=== PATIENT | male | born 1965 | race American Indian/Alaskan Native ===

== ENCOUNTER 2016-03-14 10:29 | Emergency (ER) | payer MEDICAID | END 2016-03-14 11:20 | disposition left against medical advice (07) | LOC: ED 10:29 | DX: M79.606 Pain in leg, unspecified (principal); M25.559 Pain in unspecified hip; Z53.21 Procedure and treatment not carried out due to patient leaving prior to being seen by health care provider ==

== ENCOUNTER 2016-12-27 10:11 | Outpatient (CLI) | payer MEDICAID ==
--- NOTE | 2016-12-27 11:54 | XRay Report ---
LEFT KNEE RADIOGRAPHS INDICATION: Knee pain. COMPARISON: None similar. FINDINGS: AP, lateral and oblique left knee radiographs demonstrate intact articulation. No suprapatellar effusion. Degenerative tibial spine prominence though noted. Possible osteopenia. Old healed left fibular neck deformity may also be noted. CONCLUSION: No acute left knee radiographic abnormality with mild degenerative changes, as above. Thank you for the opportunity to participate in this patient's care.
== END 2016-12-27 10:12 | disposition home or self-care (01) ==
LOC: XRAY 10:11
PROVIDERS: ATTEND Physical Medicine & Rehabilitation
DX: M17.12 Unilateral primary osteoarthritis, left knee (principal); S82.402D Unspecified fracture of shaft of left fibula, subsequent encounter for closed fracture with routine healing; X58.XXXD Exposure to other specified factors, subsequent encounter

== ENCOUNTER 2017-01-22 10:29 | Emergency (ER) | payer MEDICAID ==
[2017-01-22 11:28] VITALS: BP 160/106
--- NOTE | 2017-01-22 12:58 | XRay Report ---
CHEST WITH RIGHT RIB DETAIL 3 VIEWS: 01/22/17 10:29:00 CLINICAL: Fall and right chest wall pain. FINDINGS: No rib fracture or rib lesion.The lungs are normally expanded and clear. No pneumothorax. Normal heart and pulmonary vasculature the lungs are clear. Normal soft tissues. IMPRESSION: Negative with no rib fracture identified.
--- NOTE | 2017-01-22 13:00 | XRay Report ---
XRAY RIGHT HIP TWO VIEWS: 01/22/17 10:29:00 CLINICAL: Right hip pain. FINDINGS: The right femoral head is increased in density and there is cortical offset at the lateral aspect which is consistent with a subchondral fracture. No other fracture identified. Narrowing of the superolateral joint space with a small osteophyte. The pelvic bones are intact. Mild arthritis of the left hip. IMPRESSION: Changes in the femoral head are consistent with avascular necrosis and nontraumatic subchondral fracture of uncertain age. No other fracture. Mild arthritis.
[2017-01-22 13:53] LABS: Hematocrit 47.8 % (35.5-45.6); Hemoglobin 16.2 gm/dl (11.8-15.2); Mean Corpuscular HGB Conc 34 % (32-34); Mean Corpuscular Hemoglobin 30 pg (28-32); Mean Corpuscular Volume 88 fl (84-94); Platelet Count 262 K/mm3 (140-440); Red Blood Count 5.45 M/mm3 (3.65-5.03); Red Cell Distribution Width 13.9 % (13.2-15.2); White Blood Count 7.4 K/mm3 (4.5-11.0)
--- NOTE | 2017-01-22 13:57 | Emergency Department Report ---
ED Fall HPI - General Chief Complaint: Fall Stated Complaint: BROKEN RIBS Source: patient Mode of arrival: Ambulatory - History of Present Illness Initial Comments: 51-year-old -[place] male comes in status post fall several days ago. He's coming in complaint of right hip pain and reports that it comes and goes. He also complains of left side rib pain concern for fracture. Patient reports that pain is worse with taking a deep breath. Patient also reports that he has been followed by an orthopedic which she cannot name for his chronic hip pain patient reports that he is supposed to have a right hip replacement but orthopedics wanted him to follow-up with his primary care provider which she does not know the name prior to replacement. Patient also reports that the orthopedics wanted to him to have a scan of his right hip. Patient did admit that he was given a Percocet from his mother to deal with his pain that he is having in his right hip and left rib side. Patient reports he has a adverse reaction to codeine which she reports is itching. He is currently taking no chronic medications. Patient reports he has no other medical issues besides asthma. Based on review of chart patient has had many visits with blood pressure elevated. MD Complaint: fall -: Gradual Fall From: standing When Fall Occurred: # days BUSINESS SUPPORT (2) Fall Witnessed: no Place Fall Occurred: home Loss of Consciousness: none Prolonged Down Time?: no Location - Extremities: Right: Thigh (hip ) Severity: severe Severity scale (0 -10): 10 Quality: sharp Associated Symptoms: denies - Related Data Home Medications Medication Instructions Recorded Confirmed Last Taken Haloperidol [Haldol] 1 mg PO QHS 01/05/16 01/05/16 Unknown Previous Rx's Medication Instructions Recorded Last Taken Type Cyclobenzaprine [Flexeril] 10 mg PO BID #20 tablet 01/05/16 Unknown Rx Naproxen [Naprosyn TAB] 500 mg PO BID #14 tablet 01/05/16 Unknown Rx Naproxen 500 mg PO BID PRN #15 tablet 01/22/17 Unknown Rx Allergies Allergy/AdvReac Type Severity Reaction Status Date / Time codeine AdvReac Itching Verified 02/23/14 12:30 ED Review of Systems ROS: Stated complaint: BROKEN RIBS Other details as noted in HPI Comment: All other systems reviewed and negative Constitutional: denies: chills, fever Eyes: denies: eye pain, eye discharge, vision change ENT: denies: ear pain, throat pain Respiratory: denies: cough, shortness of breath, wheezing Musculoskeletal: arthralgia, myalgia Skin: denies: rash, lesions Neurological: denies: headache, weakness, paresthesias Psychiatric: denies: anxiety, depression Hematological/Lymphatic: denies: easy bleeding, easy bruising ED Past Medical Hx - Past Medical History Hx Arthritis: Yes (bilateral hips) Hx Psychiatric Treatment: No Hx Asthma: Yes - Surgical History Additional Surgical History: ankle - Social History Smoking Status: Current Every Day Smoker Substance Use Type: Alcohol - Medications Home Medications: Home Medications Medication Instructions Recorded Confirmed Last Taken Type Cyclobenzaprine [Flexeril] 10 mg PO BID #20 tablet 01/05/16 Unknown Rx Haloperidol [Haldol] 1 mg PO QHS 01/05/16 01/05/16 Unknown History Naproxen [Naprosyn TAB] 500 mg PO BID #14 tablet 01/05/16 Unknown Rx Naproxen 500 mg PO BID PRN #15 tablet 01/22/17 Unknown Rx ED Physical Exam - General Limitations: No Limitations General appearance: alert, in no apparent distress - Head Head exam: Present: atraumatic, normocephalic - Eye Eye exam: Present: normal appearance - Respiratory Respiratory exam: Present: normal lung sounds bilaterally. Absent: respiratory distress - Cardiovascular Cardiovascular Exam: Present: tachycardia - GI/Abdominal GI/Abdominal exam: Present: soft, normal bowel sounds - Expanded Lower Extremity Exam Right Hip exam: Present: tenderness, external rotation (with pain), internal rotation (with pain). Absent: full ROM, swelling, abrasion, erythema Upper Leg exam: Present: normal inspection Knee exam: Present: normal inspection Lower Leg exam: Present: normal inspection Ankle exam: Present: normal inspection Neuro vascular tendon exam: Present: no vascular compromise Gait: Positive: observed and limited by pain, antalgic ED Course Vital Signs 01/22/17 11:24 Temperature 98.1 F Pulse Rate 104 H Respiratory 18 Rate Blood Pressure 160/106 O2 Sat by Pulse 96 Oximetry ED Medical Decision Making - Lab Data Result diagrams: 01/22/17 13:44 01/22/17 13:44 - Medical Decision Making Patient's been evaluated by his provider in fast track. Review of x-rays and labs. Discussed case with Dr. Connell. She recommends a CT of the right hip and IV fluids. And for the patient to follow up with his primary care provider and primary orthopedist. We're looking for that QT of the fracture of the right hip. Patient will be given naproxen 500 mg by mouth for pain management. Patient has an allergy to codeine. Critical care attestation.: If time is entered above; I have spent that time in minutes in the direct care of this critically ill patient, excluding procedure time. ED Disposition Clinical Impression: Avascular necrosis of bone of right hip Fall Qualifiers: Encounter type: initial encounter Qualified Code(s): W19.XXXA - Unspecified fall, initial encounter Rib contusion Qualifiers: Encounter type: sequela Laterality: left Qualified Code(s): S20.212S - Contusion of left front wall of thorax, sequela Disposition: - TO HOME OR SELFCARE Is pt being admited?: No Does the pt Need Aspirin: No Condition: Stable Instructions: Arthralgia (ED) Additional Instructions: It's very importantly to follow-up with orthopedic provider. Please take pain medication as prescribed. Prescriptions: Naproxen 500 mg PO BID PRN #15 tablet PRN Reason: Pain Referrals: PRIMARY CAREMD [Primary Care Provider] - 3-5 Days CONNIE KENNEDY MD [Staff Physician] - 3-5 Days Forms: Work/School Release Form(ED)
[2017-01-22 14:09] LABS: Alanine Aminotransferase 41 units/L (7-56); Albumin 4.3 g/dL (3.9-5); Albumin/Globulin Ratio 0.9 %; Alkaline Phosphatase 165 units/L (35-129); Anion Gap 18 mmol/L; BUN/Creatinine Ratio 9; Blood Urea Nitrogen 8 mg/dL (9-20); Calcium 10.1 mg/dL (8.4-10.2); Carbon Dioxide 25 mmol/L (22-30); Chloride 92.1 mmol/L (98-107); Glucose 102 mg/dL (75-100); Potassium 4.6 mmol/L (3.6-5.0); Sodium 130 mmol/L (137-145); Total Protein 9.2 g/dL (6.3-8.2)
[2017-01-22] MEDS ORDERED: NACL 0.9% 1000 ML 1,000 ML IV ONE (14:30)
--- NOTE | 2017-01-22 15:37 | Cat Scan Report ---
FINAL REPORT EXAM: CT LOWER EXTREMITY RT WO CON HISTORY: abnormal x ray RIGHT hip TECHNIQUE: CT the hip and pelvis with multiplanar reconstructions PRIORS: None. FINDINGS: Demonstrated is sclerosis of the right femoral head. At the superior aspect of the femoral head there is cortical disruption consistent with subchondral fracture which is likely a traumatic. There is joint effusion present. Underlying septic arthritis cannot be excluded. There is bone defect with density present likely reflecting a remote decompression procedure. Left hip is unremarkable. Bony pelvis demonstrates no evidence for fracture. Pubic symphysis and SI joints are unremarkable. IMPRESSION: A avascular necrosis of the right femoral head evidence for prior decompression procedure Subchondral fractures of the femoral head age indeterminate. Likely reflecting sequela of 79 and. Right hip joint effusion. Septic arthritis cannot be excluded.
[2017-01-22] MEDS ORDERED: MOTRIN PO ONE (16:33)
== END 2017-01-22 17:21 | disposition home or self-care (01) ==
LOC: ED 10:29
DX: S20.212S Contusion of left front wall of thorax, sequela (principal); M87.059 Idiopathic aseptic necrosis of unspecified femur; M19.90 Unspecified osteoarthritis, unspecified site; J45.909 Unspecified asthma, uncomplicated; F17.200 Nicotine dependence, unspecified, uncomplicated; Z88.6 Allergy status to analgesic agent; W19.XXXA Unspecified fall, initial encounter; Y93.89 Activity, other specified; Y99.9 Unspecified external cause status; Y92.89 Other specified places as the place of occurrence of the external cause
CPT/HCPCS: 36415; 71101; 73502; 73700; 80053; 85025; 96360; 99284; J7030

== ENCOUNTER 2017-03-10 07:30 | Inpatient (IN) | payer MEDICAID ==
[2017-03-08 13:46] LABS: Basophils % (Auto) 0.8 % (0.0-1.8); Eosinophils # (Auto) 0.1 K/mm3 (0.0-0.4); Eosinophils % (Auto) 2.3 % (0.0-4.3); Hematocrit 41.6 % (35.5-45.6); Hemoglobin 14.1 gm/dl (11.8-15.2); Lymphocytes # (Auto) 1.7 K/mm3 (1.2-5.4); Lymphocytes % (Auto) 31.9 % (13.4-35.0); Mean Corpuscular HGB Conc 34 % (32-34); Mean Corpuscular Hemoglobin 30 pg (28-32); Mean Corpuscular Volume 89 fl (84-94); Monocytes # (Auto) 0.5 K/mm3 (0.0-0.8); Monocytes % (Auto) 9.9 % (0.0-7.3); Platelet Count 209 K/mm3 (140-440); Red Blood Count 4.69 M/mm3 (3.65-5.03); Red Cell Distribution Width 13.9 % (13.2-15.2)
--- NOTE | 2017-03-08 13:53 | Anesthesia Consultation ---
Anesthesia Consult and Med Hx Date of service: 03/08/17 - Airway Anesthetic Teeth Evaluation: Good, Chipped (top right molar) ROM Head & Neck: Adequate Mental/Hyoid Distance: Adequate Mallampati Class: Class II Intubation Access Assessment: Probably Good - Pulmonary Exam CTA: Yes - Cardiac Exam Cardiac Exam: RRR - Pre-Operative Health Status ASA Pre-Surgery Classification: ASA2 Proposed Anesthetic Plan: Epidural, Spinal - Pulmonary Hx Smoking: Yes (1PPD) Hx Asthma: Yes Hx Sleep Apnea: No (HIGH RISK) - Cardiovascular System Hx Hypertension: No - Central Nervous System Hx Seizures: No CVA: No Hx Psychiatric Problems: Yes (bipolar, depression) - Endocrine Hx End Stage Renal Disease: No Hx Liver Disease: No - Other Systems Hx Alcohol Use: Yes (H/O ETOH ABUSE, DAILY 2-3 BEER DAILY) Hx Substance Use: Yes (H/O COCAINE ABUSE NONE IN >13 YRS) Hx Cancer: No
[2017-03-08 13:56] LABS: INR 0.87 (0.87-1.13)
[2017-03-08 13:57] LABS: Partial Thromboplastin Time 21.3 Sec. (24.2-36.6)
[2017-03-08 14:06] LABS: Alanine Aminotransferase 30 units/L (7-56); Albumin 4.2 g/dL (3.9-5); BUN/Creatinine Ratio 10; Blood Urea Nitrogen 8 mg/dL (9-20); Calcium 9.5 mg/dL (8.4-10.2); Hemolysis Index 27
[~2017-03-10 07:30] MED LIST: ANCEF/STERILE WATER 2 GM/20 ML IV NR; NACL 0.9% 1000 ML 1,000 ML IV SCH; PEPCID PO NR; VERSED IV NR
--- NOTE | 2017-03-10 13:22 | Anesthesia Day of Surgery ---
Anesthesia Day of Surgery - Day of Surgery Patient Examined: Yes Patient H&P Reviewed: Yes Patient is NPO: Yes
[2017-03-10] MEDS ORDERED: ZOFRAN IV PRN (13:24)
[2017-03-10] MEDS ORDERED: MORPHINE ONE ×2 (14:11→15:19)
[2017-03-10] MEDS ORDERED: XYLOCAINE MPF 2% ONE (14:18)
[2017-03-10] MEDS ORDERED: DIPRIVAN 10 MG/ML IV ONE (14:18)
[2017-03-10] MEDS ORDERED: ZEMURON IV ONE (14:18)
[2017-03-10] MEDS ORDERED: MARCAINE 0.5% 30 ML INFILTRATI ONE (14:28)
[2017-03-10] MEDS ORDERED: TORADOL ONE (14:28)
[2017-03-10] MEDS ORDERED: NACL 0.9% 200 ML ONE (14:29)
[2017-03-10] MEDS ORDERED: MARCAINE 0.5% INFILTRATI ONE (14:52)
[2017-03-10] MEDS ORDERED: NACL 0.9% IV ONE (14:52)
[2017-03-10] MEDS ORDERED: MORPHINE IM ONE (14:52)
[2017-03-10] MEDS ORDERED: TORADOL IV ONE (14:52)
[2017-03-10] MEDS ORDERED: DILAUDID ONE ×2 (15:07→16:16)
[2017-03-10] MEDS ORDERED: NEOSTIGMINE ONE (15:35)
[2017-03-10] MEDS ORDERED: ROBINUL ONE (15:35)
[2017-03-10] MEDS ORDERED: ZOFRAN ONE (15:52)
[2017-03-10] MEDS ORDERED: ROXICODONE PO PRN (16:15)
--- NOTE | 2017-03-10 16:27 | Procedure Note ---
Date of procedure: 03/10/17 Pre-op diagnosis: avascular necrosis right femoral head with collapse Post-op diagnosis: same Procedure: Right total hip replacement Procedure The patient was brought to the OR and placed in the OR table in the supine position following induction intubation by anesthesia the patient's was turned into the left lateral decubitus position care was taken to protect the bony areas and a axillary roll was used and the left axilla. Right hip and thigh were then prepped and draped in the usual sterile manner. A timeout procedure was done to identify the patient and the correct operative site. Using the lateral approach incision was taken down through skin and subcutaneous the fascia roger was incised A Charnley retractor was placed deep within the wound care was taken to enter the anterior hip capsule by the vastus lateralis and the gluteus medius tendons in the knee was flexed and internally rotated which brought us upon the anterior portion of the hip joint using a small broach and osteotomy was performed on the femoral neck approximately 2 mm to centimeters proximal to the lesser trochanter. Using Thomas retractors the the acetabular structures were evaluated the patient was noted to have some moderate changes within the acetabulum reaming was begun starting with a 44 mm diameter and advancing up to a 52 mm cup was taken to the observed bleeding bone within the acetabulum nicely 53 mm cup was inserted care was taken to maintain the proper version that being 45 abduction and 20 of anteversion and a small screw was used to stabilize this acetabular component next attention was turned to the proximal femur using a cookie cutter and the proximal femoral canal was entered this was then reamed and broached to a #5 stem And the hip joint was then reduced using a 30 neutral neck and a 32 mm head hip was reduced taken through a range of motion and was found to be stable Trial component was removed and the hip joint was then copiously irrigated the final components were inserted that being a #5 femoral stem with a 32 mm head again the hip joint was reduced and was taken through a range of motion and found stable. He was closed in a standard routine fashion. Dressings were applied the patient tolerated the procedure and there were no complications he was taken to postanesthesia recovery stable Anesthesia: GETA Surgeon: CONNIE KENNEDY Ladderman: MANNIE CR Estimated blood loss: other (300 mL) Pathology: list Specimen disposition: to lab (right femoral head and neck) Condition: stable Disposition: PACU
[2017-03-10] MEDS: DILAUDID IV PRN ×2 (16:38→16:52)
[2017-03-10] MEDS ORDERED: NORMODYNE IV ONE (17:04)
[2017-03-10] MEDS ORDERED: VERSED IV ONE ×2 (17:14→18:00)
--- NOTE | 2017-03-10 17:51 | XRay Report ---
FINAL REPORT EXAM: XR HIP 2-3V RT HISTORY: postop evaluation TECHNIQUE: AP and frog-leg radiographs of the right hip. PRIORS: 09/21/2016. FINDINGS: There has been placement of a right hip prosthesis without evidence of hardware complication. Soft tissue swelling and subcutaneous emphysema over the lateral aspect of the right hip is likely postsurgical. Skin amber are seen lateral to the right hip. No acute fracture. Normal alignment. IMPRESSION: Right hip prosthesis placement without hardware complication.
[2017-03-10 19:53] LABS: Basophils % (Auto) 0.3 % (0.0-1.8); Eosinophils % (Auto) 0.7 % (0.0-4.3); Hematocrit 40.5 % (35.5-45.6); Hemoglobin 13.1 gm/dl (11.8-15.2); Lymphocytes # (Auto) 1.6 K/mm3 (1.2-5.4); Lymphocytes % (Auto) 21.5 % (13.4-35.0); Mean Corpuscular HGB Conc 32 % (32-34); Mean Corpuscular Hemoglobin 29 pg (28-32); Mean Corpuscular Volume 91 fl (84-94); Monocytes # (Auto) 0.6 K/mm3 (0.0-0.8); Monocytes % (Auto) 7.8 % (0.0-7.3); Platelet Count 255 K/mm3 (140-440); Red Blood Count 4.44 M/mm3 (3.65-5.03); Red Cell Distribution Width 14.6 % (13.2-15.2)
[2017-03-10] MEDS: PERCOCET 5/325 PO PRN (21:40)
[2017-03-10] MEDS: HABITROL TD SCH (22:12)
[2017-03-10] MEDS: BENADRYL IV PRN (22:13)
[2017-03-10] MEDS: LACTATED RINGERS 1,000 ML IV SCH (22:14)
[2017-03-11] MEDS: PERCOCET 5/325 PO PRN ×2 (03:43→09:58)
[2017-03-11] MEDS: NORCO 5/325 PO PRN ×3 (07:59→17:59)
[2017-03-11] MEDS: HABITROL TD SCH (09:58)
[2017-03-11] MEDS: LOVENOX SUB-Q SCH (10:04)
[2017-03-11] MEDS: BENADRYL IV PRN ×3 (10:05→23:41)
[2017-03-11] MEDS ORDERED: DILAUDID IV PRN ×2 (16:07→16:34)
[2017-03-11] MEDS: LACTATED RINGERS 1,000 ML IV SCH (18:00)
[2017-03-11] MEDS: DILAUDID IV PRN (20:13)
[2017-03-11] MEDS ORDERED: PERCOCET 5/325 PO PRN (22:50)
--- NOTE | 2017-03-11 22:52 | Consultation ---
History of Present Illness - Reason for Consult Consult date: 03/11/17 medical management Requesting physician: CONNIE CAMARENA - History of Present Illness History of present illness: 51-year-old -[place] male admitted for right hip fracture. Patient had open reduction internal fixation of right hip fracture. Postop patient doing well. Hospitalist team was asked to manage medical problems.Patient has history of bipolar disorder and depression. Past History Past Medical History: other (bipolar disorder and depression) Past Surgical History: Other (right hip surgery ORIF) Social history: lives with family, smoking, full code Medications and Allergies Allergies Allergy/AdvReac Type Severity Reaction Status Date / Time codeine Allergy Itching Verified 03/10/17 13:33 Home Medications Medication Instructions Recorded Confirmed Last Taken Type Cyclobenzaprine [Flexeril] 10 mg PO BID #20 tablet 01/05/16 03/07/17 Unknown Rx Haloperidol [Haldol] 1 mg PO QHS 01/05/16 03/10/17 03/08/17 21:00 History Naproxen [Naprosyn TAB] 500 mg PO BID #14 tablet 01/05/16 03/10/17 03/08/17 17: 00 Rx Gabapentin [Neurontin] 1 tab PO DAILY 03/07/17 03/10/17 03/08/17 09:00 History Hydroxyzine HCl [hydrOXYzine] 50 mg PO TID 03/07/17 03/10/17 03/08/17 21:00 History Blue Carbonate 600 mg PO BID 03/07/17 03/10/17 03/08/17 17:00 History Meloxicam 7.5 mg PO DAILY 03/07/17 03/07/17 Unknown History Oxycodone HCl/Acetaminophen 1 each PO Q6HR PRN 03/07/17 03/07/17 Unknown History [Percocet 7.5/325 mg] Sertraline [Zoloft] 50 mg PO QDAY 03/07/17 03/10/17 03/08/17 09:00 History traZODone [Desyrel] 200 mg PO QHS 03/07/17 03/10/17 03/08/17 21:00 History Active Meds: Active Medications Acetaminophen/Hydrocodone Bitart ([place] 5/325) 1 each PO Q4H PRN PRN Reason: Pain, Moderate (4-6) Last Admin: 03/11/17 17:59 Dose: 1 each Diphenhydramine HCl (Benadryl) 25 mg IV Q6H PRN PRN Reason: Itching Last Admin: 03/11/17 17:58 Dose: 25 mg Enoxaparin Sodium (Lovenox) 40 mg SUB-Q QDAY [facility] Last Admin: 03/11/17 10:04 Dose: 40 mg Hydromorphone HCl (Dilaudid) 2 mg IV Q3H PRN PRN Reason: Pain , Severe (7-10) Last Admin: 03/11/17 20:13 Dose: 2 mg Sodium Chloride (Nacl 0.9% 1000 Ml) 1,000 mls @ 75 mls/hr IV DIRECT [facility]OHNSON Last Admin: 03/10/17 10:00 Dose: 75 mls/hr Lactated Ringer's (Lactated Ringers) 1,000 mls @ 42 mls/hr IV DIRECT [facility] Last Admin: 03/11/17 18:00 Dose: 42 mls/hr Nicotine (Habitrol) 21 mg TD QDAY [facility] Last Admin: 03/11/17 09:58 Dose: 21 mg Ondansetron HCl (Zofran) 4 mg IV ONCE PRN PRN Reason: Nausea And Vomiting Oxycodone HCl (Roxicodone) 5 mg PO Q6H PRN PRN Reason: Pain , Severe (7-10) Last Admin: 03/11/17 11:58 Dose: 5 mg Oxycodone/Acetaminophen (Percocet 5/325) 1 tab PO Q4H PRN PRN Reason: Pain, Moderate (4-6) Last Admin: 03/11/17 09:58 Dose: 1 tab Review of Systems All systems: negative Exam - Constitutional Vitals: Temp Pulse Resp BP Pulse Ox 99.9 F H 114 H 20 165/108 99 03/11/17 19:22 03/11/17 19:22 03/11/17 20:13 03/11/17 19:22 03/11/17 19:22 General appearance: Present: no acute distress, well-nourished - EENT Eyes: Present: PERRL ENT: hearing intact, clear oral mucosa - Neck Neck: Present: supple, normal ROM - Respiratory Respiratory effort: normal Respiratory: bilateral: CTA - Cardiovascular Rhythm: regular (80) Heart Sounds: Present: S1 & S2. Absent: rub, click - Extremities Extremities: no ischemia, pulses intact, pulses symmetrical, No edema, abnormal (decreased range of motion in that right hip) Peripheral Pulses: within normal limits - Abdominal General gastrointestinal: Present: soft, non-tender, non-distended, normal bowel sounds Male genitourinary: Present: normal - Rectal Rectal Exam: deferred - Integumentary Integumentary: Present: clear, warm, dry - Musculoskeletal Musculoskeletal: gait normal, strength equal bilaterally - Psychiatric Psychiatric: appropriate mood/affect, intact judgment & insight - Neurologic Neurologic: CNII-XII intact, moves all extremities Results - Labs CBC & Chem 7: 03/10/17 19:40 03/08/17 13:04 Assessment and Plan - Patient Problems (1) Closed right hip fracture Current Visit: Yes Status: Acute Qualifiers: Encounter type: initial encounter Qualified Code(s): S72.001A - Fracture of unspecified part of neck of right femur, initial encounter for closed fracture Plan to address problem: patient had ORIF by Dr. Camarena. Postop patient doing well (2) Bipolar disorder Current Visit: Yes Status: Chronic Qualifiers: Active/Remission status: in full remission Plan to address problem: continue lithium carbonate check lithium levels. (3) Depression Current Visit: Yes Status: Chronic Qualifiers: Depression Type: unspecified Qualified Code(s): F32.9 - Major depressive disorder, single episode, unspecified Plan to address problem: continue Zoloft (4) EtOH dependence Current Visit: Yes Status: Chronic Qualifiers: Substance use status: uncomplicated Qualified Code(s): F10.20 - Alcohol dependence, uncomplicated Plan to address problem: CIWA protocol (5) Pain management Current Visit: Yes Status: Acute Plan to address problem: morphine 4 mg every 4 hours ordered (6) DVT prophylaxis Current Visit: No Status: Acute Plan to address problem: SCDs and Lovenox
[2017-03-11] MEDS: ESKALITH PO SCH (23:38)
[2017-03-11] MEDS: FLEXERIL PO SCH (23:39)
[2017-03-11] MEDS: DESYREL PO SCH (23:58)
[2017-03-11] MEDS: HALDOL PO SCH (23:59)
[2017-03-12] MEDS: DILAUDID IV PRN ×6 (02:29→23:16)
[2017-03-12] MEDS: BENADRYL IV PRN ×2 (06:31→19:55)
[2017-03-12 06:46] LABS: Basophils % (Auto) 0.2 % (0.0-1.8); Eosinophils % (Auto) 0.5 % (0.0-4.3); Hematocrit 29.6 % (35.5-45.6); Hemoglobin 10.2 gm/dl (11.8-15.2); Lymphocytes # (Auto) 1.4 K/mm3 (1.2-5.4); Lymphocytes % (Auto) 19.8 % (13.4-35.0); Mean Corpuscular HGB Conc 34 % (32-34); Mean Corpuscular Hemoglobin 31 pg (28-32); Mean Corpuscular Volume 90 fl (84-94); Monocytes % (Auto) 14.9 % (0.0-7.3); Platelet Count 222 K/mm3 (140-440); Red Blood Count 3.31 M/mm3 (3.65-5.03); Red Cell Distribution Width 14.1 % (13.2-15.2)
[2017-03-12 06:57] LABS: BUN/Creatinine Ratio 8; Blood Urea Nitrogen 7 mg/dL (9-20); Calcium 8.8 mg/dL (8.4-10.2); Hemolysis Index 10
[2017-03-12] MEDS: ATARAX PO SCH ×3 (10:00→23:04)
[2017-03-12] MEDS: FLEXERIL PO SCH ×2 (10:01→23:14)
[2017-03-12] MEDS: NEURONTIN PO SCH (10:02)
[2017-03-12] MEDS: ZOLOFT PO SCH (10:02)
[2017-03-12] MEDS: LOVENOX SUB-Q SCH (10:03)
[2017-03-12] MEDS: HABITROL TD SCH (10:04)
[2017-03-12] MEDS: ESKALITH PO SCH ×2 (10:05→23:14)
--- NOTE | 2017-03-12 11:06 | Progress Note ---
Assessment and Plan Assessment and plan: 51-year-old -[place] male admitted for right hip fracture. Patient had open reduction internal fixation of right hip fracture. Postop patient doing well. Hospitalist team was asked to manage medical problems.Patient has history of bipolar disorder and depression. Closed right hip fracture patient had ORIF by Dr. Camarena. Postop patient doing well Bipolar disorder continue lithium carbonate check lithium levels. Depression continue Zoloft EtOH dependence CIWA protocol Right thigh swelling Most likely inflammation related to the surgical procedure. But we'll get Dopplers to rule out DVT Acute blood loss anemia expected postsurgical outcome -Hemoglobin stable at this time. DVT prophylaxis SCDs and Lovenox History Interval history: He is complaining of right pain that is surgery. In swelling of his right thigh. Review of systems Constitutional: No fevers, no malaise, no joint pains CVS: No chest pain, no orthopnea, no dyspnea on exertion, no pedal edema GI: No abdominal pain, no diarrhea, no vomiting, no constipation Respiratory: No shortness of breath, no wheezing, no coughing Hospitalist Physical - Physical exam Narrative exam: General.: Appears well, no distress, nontoxic HEENT: Moist mucous membranes, extraocular muscles intact, no lymphadenopathy Neck: supple Cardiac: S1-S2 heard Lungs: clear to auscultation bilaterally Abdomen: soft , nontender, nondistended, bowel sounds positive Extremities: no edema clubbing or cyanosis Surgical dressing to the right hip Skin: no rash or lesions Neurologic: no gross focal deficits Psych: appropriate behavior, appropriate mood, corporative, judgment intact - Constitutional Vitals: Temp Pulse Resp BP Pulse Ox 98.2 F 118 H 18 143/87 97 03/12/17 08:00 03/12/17 08:00 03/12/17 08:00 03/12/17 08:00 03/12/17 08:00 General appearance: Present: no acute distress, well-nourished Results - Labs CBC & Chem 7: 03/12/17 06:00 03/12/17 06:00 Labs: Laboratory Last Values WBC 7.0 K/mm3 (4.5-11.0) 03/12/17 06:00 RBC 3.31 M/mm3 (3.65-5.03) L 03/12/17 06:00 Hgb 10.2 gm/dl (11.8-15.2) L 03/12/17 06:00 Hct 29.6 % (35.5-45.6) L D 03/12/17 06:00 MCV 90 fl (84-94) 03/12/17 06:00 MCH 31 pg (28-32) 03/12/17 06:00 MCHC 34 % (32-34) 03/12/17 06:00 RDW 14.1 % (13.2-15.2) 03/12/17 06:00 Plt Count 222 K/mm3 (140-440) 03/12/17 06:00 Lymph % (Auto) 19.8 % (13.4-35.0) 03/12/17 06:00 Mobile % (Auto) 14.9 % (0.0-7.3) H 03/12/17 06:00 Eos % (Auto) 0.5 % (0.0-4.3) 03/12/17 06:00 Baso % (Auto) 0.2 % (0.0-1.8) 03/12/17 06:00 Lymph # 1.4 K/mm3 (1.2-5.4) 03/12/17 06:00 Mobile # 1.0 K/mm3 (0.0-0.8) H 03/12/17 06:00 Eos # 0.0 K/mm3 (0.0-0.4) 03/12/17 06:00 Baso # 0.0 K/mm3 (0.0-0.1) 03/12/17 06:00 Seg Neutrophils % 64.6 % (40.0-70.0) 03/12/17 06:00 Seg Neutrophils # 4.5 K/mm3 (1.8-7.7) 03/12/17 06:00 PT 12.2 Sec. (12.2-14.9) 03/08/17 13:20 INR 0.87 (0.87-1.13) 03/08/17 13:20 APTT 21.3 Sec. (24.2-36.6) L 03/08/17 13:20 Sodium 134 mmol/L (137-145) L 03/12/17 06:00 Potassium 3.7 mmol/L (3.6-5.0) D 03/12/17 06:00 Chloride 96.8 mmol/L (98-107) L 03/12/17 06:00 Carbon Dioxide 24 mmol/L (22-30) 03/12/17 06:00 Anion Gap 17 mmol/L 03/12/17 06:00 BUN 7 mg/dL (9-20) L 03/12/17 06:00 Creatinine 0.9 mg/dL (0.8-1.5) 03/12/17 06:00 Estimated GFR > 60 ml/min 03/12/17 06:00 BUN/Creatinine Ratio 8 % 03/12/17 06:00 Glucose 112 mg/dL (75-100) H 03/12/17 06:00 Calcium 8.8 mg/dL (8.4-10.2) 03/12/17 06:00 Total Bilirubin 0.30 mg/dL (0.1-1.2) 03/08/17 13:04 AST 31 units/L (5-40) 03/08/17 13:04 ALT 30 units/L (7-56) 03/08/17 13:04 Alkaline Phosphatase 139 units/L (35-129) H 03/08/17 13:04 Total Protein 7.6 g/dL (6.3-8.2) 03/08/17 13:04 Albumin 4.2 g/dL (3.9-5) 03/08/17 13:04 Albumin/Globulin Ratio 1.2 % 03/08/17 13:04 [place] 0.1 mmol/L (0.0-1.2) 03/11/17 23:23
[2017-03-12] MEDS ORDERED: DILAUDID IV PRN (13:39)
[2017-03-12] MEDS ORDERED: DESYREL PO SCH (22:00)
[2017-03-12] MEDS ORDERED: HALDOL PO SCH (22:00)
[2017-03-12] MEDS: HALDOL PO SCH (23:15)
[2017-03-12] MEDS: DESYREL PO SCH (23:15)
[2017-03-13] MEDS: BENADRYL IV PRN ×3 (02:57→17:56)
[2017-03-13] MEDS: DILAUDID IV PRN ×6 (02:58→22:03)
[2017-03-13] MEDS: ATARAX PO SCH ×3 (08:30→22:02)
--- NOTE | 2017-03-13 08:41 | Progress Note ---
Assessment and Plan Assessment and plan: 51-year-old -[place] male admitted for right hip fracture. Patient had open reduction internal fixation of right hip fracture. Postop patient doing well. Hospitalist team was asked to manage medical problems.Patient has history of bipolar disorder and depression. Closed right hip fracture patient had ORIF by Dr. Camarena. Postop patient doing well Bipolar disorder continue lithium carbonate check lithium levels. Depression continue Zoloft EtOH dependence CIWA protocol Right thigh swelling Most likely inflammation related to the surgical procedure. dopplers neg for dvt Acute blood loss anemia expected postsurgical outcome -Hemoglobin stable at this time. tranfuse to keep >7 DVT prophylaxis SCDs and Lovenox Dispo: to snf tomorrow History Interval history: He is complaining of right pain that is from surgery. In swelling of his right thigh. pain is improved today, he has been able to ambulate with walker Review of systems Constitutional: No fevers, no malaise, no joint pains CVS: No chest pain, no orthopnea, no dyspnea on exertion, no pedal edema GI: No abdominal pain, no diarrhea, no vomiting, no constipation Respiratory: No shortness of breath, no wheezing, no coughing Hospitalist Physical - Physical exam Narrative exam: General.: Appears well, no distress, nontoxic HEENT: Moist mucous membranes, extraocular muscles intact, no lymphadenopathy Neck: supple Cardiac: S1-S2 heard Lungs: clear to auscultation bilaterally Abdomen: soft , nontender, nondistended, bowel sounds positive Extremities: no edema clubbing or cyanosis Surgical dressing to the right hip Skin: no rash or lesions Neurologic: no gross focal deficits Psych: appropriate behavior, appropriate mood, corporative, judgment intact - Constitutional Vitals: Temp Pulse Resp BP Pulse Ox 98.8 F 105 H 16 136/84 97 03/13/17 07:50 03/13/17 07:50 03/13/17 07:50 03/13/17 07:50 03/13/17 07:50 General appearance: Present: no acute distress, well-nourished Results - Labs CBC & Chem 7: 03/13/17 10:59 03/13/17 10:59 Labs: Laboratory Last Values WBC 7.0 K/mm3 (4.5-11.0) 03/12/17 06:00 RBC 3.31 M/mm3 (3.65-5.03) L 03/12/17 06:00 Hgb 10.2 gm/dl (11.8-15.2) L 03/12/17 06:00 Hct 29.6 % (35.5-45.6) L D 03/12/17 06:00 MCV 90 fl (84-94) 03/12/17 06:00 MCH 31 pg (28-32) 03/12/17 06:00 MCHC 34 % (32-34) 03/12/17 06:00 RDW 14.1 % (13.2-15.2) 03/12/17 06:00 Plt Count 222 K/mm3 (140-440) 03/12/17 06:00 Lymph % (Auto) 19.8 % (13.4-35.0) 03/12/17 06:00 Gray % (Auto) 14.9 % (0.0-7.3) H 03/12/17 06:00 Eos % (Auto) 0.5 % (0.0-4.3) 03/12/17 06:00 Baso % (Auto) 0.2 % (0.0-1.8) 03/12/17 06:00 Lymph # 1.4 K/mm3 (1.2-5.4) 03/12/17 06:00 Gray # 1.0 K/mm3 (0.0-0.8) H 03/12/17 06:00 Eos # 0.0 K/mm3 (0.0-0.4) 03/12/17 06:00 Baso # 0.0 K/mm3 (0.0-0.1) 03/12/17 06:00 Seg Neutrophils % 64.6 % (40.0-70.0) 03/12/17 06:00 Seg Neutrophils # 4.5 K/mm3 (1.8-7.7) 03/12/17 06:00 PT 12.2 Sec. (12.2-14.9) 03/08/17 13:20 INR 0.87 (0.87-1.13) 03/08/17 13:20 APTT 21.3 Sec. (24.2-36.6) L 03/08/17 13:20 Sodium 134 mmol/L (137-145) L 03/12/17 06:00 Potassium 3.7 mmol/L (3.6-5.0) D 03/12/17 06:00 Chloride 96.8 mmol/L (98-107) L 03/12/17 06:00 Carbon Dioxide 24 mmol/L (22-30) 03/12/17 06:00 Anion Gap 17 mmol/L 03/12/17 06:00 BUN 7 mg/dL (9-20) L 03/12/17 06:00 Creatinine 0.9 mg/dL (0.8-1.5) 03/12/17 06:00 Estimated GFR > 60 ml/min 03/12/17 06:00 BUN/Creatinine Ratio 8 % 03/12/17 06:00 Glucose 112 mg/dL (75-100) H 03/12/17 06:00 Calcium 8.8 mg/dL (8.4-10.2) 03/12/17 06:00 Total Bilirubin 0.30 mg/dL (0.1-1.2) 03/08/17 13:04 AST 31 units/L (5-40) 03/08/17 13:04 ALT 30 units/L (7-56) 03/08/17 13:04 Alkaline Phosphatase 139 units/L (35-129) H 03/08/17 13:04 Total Protein 7.6 g/dL (6.3-8.2) 03/08/17 13:04 Albumin 4.2 g/dL (3.9-5) 03/08/17 13:04 Albumin/Globulin Ratio 1.2 % 03/08/17 13:04 Velarde 0.1 mmol/L (0.0-1.2) 03/11/17 23:23
[2017-03-13] MEDS: ESKALITH PO SCH ×2 (10:50→22:02)
[2017-03-13] MEDS: NEURONTIN PO SCH (10:51)
[2017-03-13] MEDS: FLEXERIL PO SCH ×2 (10:51→22:02)
[2017-03-13] MEDS: LOVENOX SUB-Q SCH (10:52)
[2017-03-13] MEDS: ZOLOFT PO SCH (10:52)
[2017-03-13] MEDS: HABITROL TD SCH (10:54)
[2017-03-13 11:49] LABS: Hematocrit 28.3 % (35.5-45.6); Hemoglobin 9.3 gm/dl (11.8-15.2); Mean Corpuscular HGB Conc 33 % (32-34); Mean Corpuscular Hemoglobin 29 pg (28-32); Mean Corpuscular Volume 89 fl (84-94); Platelet Count 264 K/mm3 (140-440); Red Blood Count 3.17 M/mm3 (3.65-5.03); Red Cell Distribution Width 13.8 % (13.2-15.2)
[2017-03-13 12:09] LABS: BUN/Creatinine Ratio 13; Blood Urea Nitrogen 10 mg/dL (9-20); Calcium 9.1 mg/dL (8.4-10.2); Hemolysis Index 11
[2017-03-13] MEDS: DESYREL PO SCH (22:01)
[2017-03-13] MEDS: HALDOL PO SCH (22:03)
[2017-03-14] MEDS: BENADRYL PO PRN ×3 (02:58→17:51)
[2017-03-14] MEDS: DILAUDID IV PRN ×2 (02:59→08:32)
[2017-03-14] MEDS: ATARAX PO SCH ×3 (08:33→21:22)
--- NOTE | 2017-03-14 08:46 | Progress Note ---
Assessment and Plan continue PT and observation, discussed possible rehab placement vs home Subjective Date of service: 03/14/17 Interval history: c/o right hip incisional pain, otherwise ok Objective Vital signs: Vital Signs - 12hr 03/13/17 03/13/17 03/13/17 22:03 22:33 22:45 Temperature 98.7 F Pulse Rate 108 H Respiratory 20 16 20 Rate Blood Pressure 133/75 O2 Sat by Pulse 97 Oximetry 03/14/17 03/14/17 03/14/17 02:59 03:29 06:59 Temperature 98.9 F Pulse Rate 103 H Respiratory 20 16 18 Rate Blood Pressure 112/70 O2 Sat by Pulse 97 Oximetry 03/14/17 08:32 Temperature Pulse Rate Respiratory 4 L Rate Blood Pressure O2 Sat by Pulse Oximetry - Labs CBC & BMP: 03/13/17 10:59 03/13/17 10:59 Labs: Abnormal lab results 03/13/17 03/13/17 Range/Units 10:59 10:59 RBC 3.17 L (3.65-5.03) M/mm3 Hgb 9.3 L (11.8-15.2) gm/dl Hct 28.3 L (35.5-45.6) % Sodium 131 L (137-145) mmol/L Chloride 93.5 L (98-107) mmol/L Glucose 120 H (75-100) mg/dL
[2017-03-14] MEDS: HABITROL TD SCH (09:02)
[2017-03-14] MEDS: FLEXERIL PO SCH ×2 (09:03→21:22)
[2017-03-14] MEDS: ZOLOFT PO SCH (09:03)
[2017-03-14] MEDS: ESKALITH PO SCH ×2 (09:04→21:21)
[2017-03-14] MEDS: LOVENOX SUB-Q SCH (09:04)
[2017-03-14] MEDS: NEURONTIN PO SCH (09:05)
--- NOTE | 2017-03-14 09:39 | Discharge Summary ---
Providers - Providers Date of Admission: 03/10/17 08:54 Attending physician: BRITTNEY SOMMER MD 03/11/17 11:49 Physical Therapy Evaluation and Treat [CONS] Routine Comment: Reason For Exam: total right hip 03/11/17 14:44 Consult to Physician [CONS] Routine Consulting Provider: CONNIE KENNEDY Reason For Exam: medical management Place consult to:: Dr. Felix Notified:: yes Phone number called:: [phone] Was contact made?: Yes If yes, spoke with:: Dr. Felix @ [phone] Comment:: will see patient Primary care physician: KAEL RODRIGUEZ Hospitalization Hospital course: 51-year-old -Mal[place]ian male admitted for right hip fracture. Patient had open reduction internal fixation of right hip fracture. Postop patient doing well. Hospitalist team was asked to manage medical problems.Patient has history of bipolar disorder and depression. He received blood transfusion for acute blood loss anemia after the operation Expected Outcome. The patient's clinically improved. He tolerated physical therapy well. He was planned for discharge to subacute rehabilitation facility. The patient stated that he could not afford it and did not want to lose his income less $50 to that process. He then elected to go home with home health for PT. He was subsequently discharged. Discharge diagnoses Closed right hip fracture Bipolar disorder Depression EtOH dependence Acute blood loss anemia Disposition: DC/[place]-06 HOME UNDER HOME [facility] Time spent for discharge: 33 minutes Core Measure Documentation - Palliative Care Palliative Care/ Comfort Measures: Not Applicable - Core Measures Any of the following diagnoses?: none Exam - Physical Exam Narrative exam: General.: Appears well, no distress, nontoxic HEENT: Moist mucous membranes, extraocular muscles intact, no lymphadenopathy Neck: supple Cardiac: S1-S2 heard Lungs: clear to auscultation bilaterally Abdomen: soft , nontender, nondistended, bowel sounds positive Extremities: no edema clubbing or cyanosis Surgical dressing to the right hip Skin: no rash or lesions Neurologic: no gross focal deficits Psych: appropriate behavior, appropriate mood, corporative, judgment intact - Constitutional Vitals: Temp Pulse Resp BP Pulse Ox 98.9 F 103 H 0 L 112/70 97 03/14/17 06:59 03/14/17 06:59 03/14/17 08:51 03/14/17 06:59 03/14/17 06:59 Plan Follow up with: KAEL RODRIGUEZ MD [Primary Care Provider] - 7 Days Prescriptions: HYDROmorphone [Dilaudid] 2 mg PO Q4HR #14 tablet oxyCODONE /ACETAMINOPHEN [Percocet 5/325 mg] 2 tab PO Q6H PRN #14 tablet PRN Reason: Pain Other Discharge Orders: Home Health Care (Amb) Location: Determined By Patient
[2017-03-14] MEDS: PERCOCET 5/325 PO PRN ×2 (12:21→17:50)
[2017-03-14] MEDS: ROXICODONE PO PRN (14:44)
[2017-03-14] MEDS: HALDOL PO SCH (21:21)
[2017-03-14] MEDS: DESYREL PO SCH (21:21)
[2017-03-15] MEDS: ROXICODONE PO PRN ×3 (02:21→14:24)
[2017-03-15] MEDS: NEURONTIN PO SCH (09:04)
[2017-03-15] MEDS: ZOLOFT PO SCH (09:04)
[2017-03-15] MEDS: FLEXERIL PO SCH (09:04)
[2017-03-15] MEDS: HABITROL TD SCH (09:04)
[2017-03-15] MEDS: PERCOCET 5/325 PO PRN ×3 (09:05→14:25)
[2017-03-15] MEDS: ATARAX PO SCH ×2 (09:05→14:25)
[2017-03-15] MEDS: LOVENOX SUB-Q SCH (09:06)
[2017-03-15] MEDS: BENADRYL PO PRN ×2 (09:07→14:25)
[2017-03-15] MEDS: ESKALITH PO SCH (09:15)
[2017-03-15 11:54] VITALS: BP 131/74
== END 2017-03-15 15:10 | disposition home health service (06) | DRG 470 ==
LOC: 3A 08:54 → 3B-SURG 16:45
PROVIDERS: ADMIT Orthopaedic Surgery; ATTEND Internal Medicine
PROC: 0SR90JZ Replacement of Right Hip Joint with Synthetic Substitute, Open Approach (ICD-10-PCS; principal; 2017-03-10)
DX: M87.851 Other osteonecrosis, right femur (principal); D62 Acute posthemorrhagic anemia; F31.9 Bipolar disorder, unspecified; M84.459A Pathological fracture, hip, unspecified, initial encounter for fracture; F10.20 Alcohol dependence, uncomplicated; F41.9 Anxiety disorder, unspecified; G43.909 Migraine, unspecified, not intractable, without status migrainosus; I10 Essential (primary) hypertension; F19.90 Other psychoactive substance use, unspecified, uncomplicated; F17.200 Nicotine dependence, unspecified, uncomplicated; M79.89 Other specified soft tissue disorders; Z72.89 Other problems related to lifestyle; Z88.5 Allergy status to narcotic agent; Z79.899 Other long term (current) drug therapy
CPT/HCPCS: 36415; 80048; 80053; 80178; 85025; 85027; 85610; 85730; 88304; 88311; 93005; 93010; 93970; C1776; J0690; J1170; J1200; J1650; J1885; J2250; J2270; J2405; J2704; J2710; J7030; J7120

== ENCOUNTER 2017-06-01 10:19 | Outpatient (CLI) | payer MEDICAID ==
--- NOTE | 2017-06-01 12:20 | XRay Report ---
RIGHT HIP, 2 views: History: Right hip pain. Compared to 03/10/17. The right hip prosthesis appears unchanged in position and alignment since the previous exam. No evidence for fracture, loosening or infection. No dislocation. The bony structures are intact. IMPRESSION: Stable appearance of the right hip prosthesis.
--- NOTE | 2017-06-01 12:21 | XRay Report ---
RIGHT KNEE, 3 views: History: Right knee pain. Borderline osteopenia is suspected. No acute osseous findings or bone lesion. Mild medial compartment joint space narrowing is suspected. The soft tissues are unremarkable. IMPRESSION: Borderline osteopenia. Early joint space narrowing in the medial compartment. No acute process noted.
== END 2017-06-01 10:20 | disposition home or self-care (01) ==
LOC: XRAY 10:19
PROVIDERS: ATTEND Orthopaedic Surgery
DX: M25.561 Pain in right knee (principal); M25.551 Pain in right hip; Z96.641 Presence of right artificial hip joint

== ENCOUNTER 2018-04-26 07:57 | Emergency (ER) | payer MEDICAID ==
--- NOTE | 2018-04-26 09:33 | Emergency Department Report ---
Minor Respiratory - HPI Chief Complaint: Upper Respiratory Infection Stated Complaint: COLD Time Seen by Provider: 04/26/18 09:10 Duration: chronically for a year Minor Respiratory: Yes Cough, No Rhinorrhea Other History: Patient is a chronic heavy smoker and states that he has a chronic cough that is worsening. Patient states at night he feels choked on his mucus. 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 Review of Systems ROS: Stated complaint: COLD Other details as noted in HPI Comment: All other systems reviewed and negative ED Past Medical Hx - Past Medical History Hx Hypertension: No Hx Congestive Heart Failure: No Hx Diabetes: No Hx GERD: Yes Hx Liver Disease: No Hx Arthritis: Yes (bilateral hips) Hx Seizures: No Hx Psychiatric Treatment: No Hx Asthma: Yes Hx COPD: No Hx HIV: No - Surgical History Additional Surgical History: ankle, hip - Social History Smoking Status: Current Every Day Smoker Substance Use Type: None - Medications Home Medications: Home Medications Medication Instructions Recorded Confirmed Last Taken Type Cyclobenzaprine [Flexeril 10 MG 10 mg PO BID #20 tablet 01/05/16 03/07/17 Unknown Rx TAB] Haloperidol [Haldol] 1 mg PO QHS 01/05/16 03/10/17 03/08/17 21:00 History Gabapentin [Neurontin] 1 tab PO DAILY 03/07/17 03/10/17 03/08/17 09:00 History Hydroxyzine HCl [hydrOXYzine] 50 mg PO TID 03/07/17 03/10/17 03/08/17 21:00 History [place] Carbonate 600 mg PO BID 03/07/17 03/10/17 03/08/17 17:00 History Meloxicam 7.5 mg PO DAILY 03/07/17 03/07/17 Unknown History Sertraline [Zoloft] 50 mg PO QDAY 03/07/17 03/10/17 03/08/17 09:00 History traZODone [Desyrel] 200 mg PO QHS 03/07/17 03/10/17 03/08/17 21:00 History HYDROmorphone [Dilaudid] 2 mg PO Q4HR #14 tablet 03/14/17 Unknown Rx Nicotine [Habitrol] 21 mg TD QDAY patch 03/14/17 Unknown Rx oxyCODONE /ACETAMINOPHEN [Percocet 2 tab PO Q6H PRN #14 tablet 03/14/17 Unknown Rx 5/325 mg] ALBUTEROL Inhaler (OR & NICU) 2 puff IH QID PRN #1 inhalation 04/26/18 Unknown Rx [ProAir HFA Inhaler] predniSONE [Deltasone] 10 mg PO .TAPER #21 tab 04/26/18 Unknown Rx Minor Respiratory Exam - Exam General: Vital signs noted. No distress. Alert and acting appropriately. HEENT: Yes Moist Mucous Membranes, No Pharyngeal Erythema, No Pharyngeal Exudates, No Rhinorrhea, No Conjuctival Injection, No Frontal Tenderness, No Maxillary Tenderness Ear: Neither TM Bulge, Neither TM Erythema, Neither EAC Pain, Neither EAC Discharge Neck: Yes Supple, No Adenopathy Lungs: Yes Good Air Exchange, No Wheezes, No Ronchi, No Stridor, No Cough, No Labored Respirations, No Retractions, No Use of Accessory Muscles, No Other Abnormal Lung Sounds Heart: Yes Regular, No Murmur Abdomen: Yes Normal Bowel Sounds, No Tenderness, No Peritoneal Signs Skin: No Rash, No Edema Neurologic: Alert and oriented, no deficits. Musculoskeletal: Unremarkable. ED Course Vital Signs 04/26/18 08:06 Temperature 97.7 F Pulse Rate 84 Respiratory 18 Rate Blood Pressure 125/74 O2 Sat by Pulse 97 Oximetry ED Medical Decision Making - Medical Decision Making A long discussion with the patient that his symptoms to what medication we gave would not improve Manfred stop smoking. He voiced understanding. Patient referred to pulmonology. Critical care attestation.: If time is entered above; I have spent that time in minutes in the direct care of this critically ill patient, excluding procedure time. ED Disposition Clinical Impression: Chronic bronchitis Qualifiers: Chronic bronchitis type: mucopurulent Qualified Code(s): J41.1 - Mucopurulent chronic bronchitis Disposition: - TO HOME OR SELFCARE Is pt being admited?: No Does the pt Need Aspirin: No Condition: Stable Instructions: Chronic Bronchitis (ED) Referrals: JEMAL RALPH MD [Primary Care Provider] - 3-5 Days NATALY ORDAZ MD [Staff Physician] - 3-5 Days Time of Disposition: 09:30
== END 2018-04-26 10:05 | disposition home or self-care (01) ==
LOC: ED 07:57
CPT/HCPCS: 99281

== ENCOUNTER 2018-10-11 01:38 | Emergency (ER) | payer MEDICAID ==
--- NOTE | 2018-10-11 02:46 | Emergency Department Report ---
ED General Adult HPI - General Chief complaint: Allergic Reaction Stated complaint: ALLERGIC REATION Time Seen by Provider: 10/11/18 02:16 Source: EMS Mode of arrival: Stretcher Limitations: No Limitations - History of Present Illness Initial comments: Patient reports that he was started on a new anxiety medication. Reports that when he took it yesterday he felt nauseous and strange. Reports symptoms resolved with time. Patient feels that he may have allergic reaction to the new Klonopin medication that he takes for anxiety. Denies SI/HI -: Gradual, hour(s) - Related Data Home Medications Medication Instructions Recorded Confirmed Last Taken Haloperidol [Haldol] 1 mg PO QHS 01/05/16 03/10/17 03/08/17 21:00 Gabapentin [Neurontin] 1 tab PO DAILY 03/07/17 03/10/17 03/08/17 09:00 Hydroxyzine HCl [hydrOXYzine] 50 mg PO TID 03/07/17 03/10/17 03/08/17 21:00 [place] Carbonate 600 mg PO BID 03/07/17 03/10/17 03/08/17 17:00 Meloxicam 7.5 mg PO DAILY 03/07/17 03/07/17 Unknown Sertraline [Zoloft] 50 mg PO QDAY 03/07/17 03/10/17 03/08/17 09:00 traZODone [Desyrel] 200 mg PO QHS 03/07/17 03/10/17 03/08/17 21:00 Previous Rx's Medication Instructions Recorded Last Taken Type Cyclobenzaprine [Flexeril 10 MG 10 mg PO BID #20 tablet 01/05/16 Unknown Rx TAB] HYDROmorphone [Dilaudid] 2 mg PO Q4HR #14 tablet 03/14/17 Unknown Rx Nicotine [Habitrol] 21 mg TD QDAY patch 03/14/17 Unknown Rx oxyCODONE /ACETAMINOPHEN [Percocet 2 tab PO Q6H PRN #14 tablet 03/14/17 Unknown Rx 5/325 mg] ALBUTEROL Inhaler (OR & NICU) 2 puff IH QID PRN #1 inhalation 04/26/18 Unknown Rx [ProAir HFA Inhaler] predniSONE [Deltasone] 10 mg PO .TAPER #21 tab 04/26/18 Unknown Rx Allergies Allergy/AdvReac Type Severity Reaction Status Date / Time codeine Allergy Itching Verified 04/26/18 08:06 ED Review of Systems ROS: Stated complaint: ALLERGIC REATION Other details as noted in HPI Other: GENERAL: No weight change, fatigue, weakness, fever, chills, or night sweats SKIN: No changes in skin or hair, no itching, no rashes, no jaundice HEAD: No trauma, headache, or visual changes EYES: No blurriness, tearing, itching, acute visual loss, conjunctival discoloration, or scleral icterus EARS: No hearing loss, tinnitus, vertigo, or earache NOSE: No rhinorrhea, stuffiness, sneezing, itching, or epistaxis MOUTH: No bleeding gums, hoarseness, sore throat, or swelling CARDIAC: No new murmur, chest pain, palpitations, dyspnea on exertion, orthopnea, PND, or edema RESPIRATORY: No shortness of breath, wheeze, cough, sputum production, hemoptysis, pneumonia, asthma, bronchitis, or emphysema GI: Nausea. No change in appetite, vomiting, dysphagia, change in bowel frequency, diarrhea, constipation, bleeding, hematemesis, melena, hematochezia, or abdominal pain URINARY: No frequency, urgency, polyuria, dysuria, hematuria, or incontinence MUSCULOSKELETAL: No muscle weakness, joint stiffness, decrease in range of motion, redness, swelling NEUROLOGIC: No loss of sensation, numbness, tingling, tremors, weakness, paralysis, seizures HEMATOLOGIC: No anemia, easy bruising, bleeding, petechiae, or purpura ENDOCRINE: No hot or cold intolerance, sweating, polyuria, polydipsia or, polyphagia no thyroid problems PSYCHIATRIC: No change in mood, no anxiety, no depression ED Past Medical Hx - Past Medical History Previous Medical History?: Yes Hx Hypertension: No Hx Congestive Heart Failure: No Hx Diabetes: No Hx GERD: Yes Hx Liver Disease: No Hx Arthritis: Yes (bilateral hips) Hx Seizures: No Hx Psychiatric Treatment: No Hx Asthma: Yes Hx COPD: No Hx HIV: No - Surgical History Past Surgical History?: Yes Additional Surgical History: ankle, hip replacement - Social History Smoking Status: Current Every Day Smoker Substance Use Type: Alcohol - Medications Home Medications: Home Medications Medication Instructions Recorded Confirmed Last Taken Type Cyclobenzaprine [Flexeril 10 MG 10 mg PO BID #20 tablet 01/05/16 03/07/17 Unknown Rx TAB] Haloperidol [Haldol] 1 mg PO QHS 01/05/16 03/10/17 03/08/17 21:00 History Gabapentin [Neurontin] 1 tab PO DAILY 03/07/17 03/10/17 03/08/17 09:00 History Hydroxyzine HCl [hydrOXYzine] 50 mg PO TID 03/07/17 03/10/17 03/08/17 21:00 History [place] Carbonate 600 mg PO BID 03/07/17 03/10/17 03/08/17 17:00 History Meloxicam 7.5 mg PO DAILY 03/07/17 03/07/17 Unknown History Sertraline [Zoloft] 50 mg PO QDAY 03/07/17 03/10/17 03/08/17 09:00 History traZODone [Desyrel] 200 mg PO QHS 03/07/17 03/10/17 03/08/17 21:00 History HYDROmorphone [Dilaudid] 2 mg PO Q4HR #14 tablet 03/14/17 Unknown Rx Nicotine [Habitrol] 21 mg TD QDAY patch 03/14/17 Unknown Rx oxyCODONE /ACETAMINOPHEN [Percocet 2 tab PO Q6H PRN #14 tablet 03/14/17 Unknown Rx 5/325 mg] ALBUTEROL Inhaler (OR & NICU) 2 puff IH QID PRN #1 inhalation 04/26/18 Unknown Rx [ProAir HFA Inhaler] predniSONE [Deltasone] 10 mg PO .TAPER #21 tab 04/26/18 Unknown Rx ED Physical Exam - General Limitations: No Limitations - Other Other exam information: GENERAL: Patient in no acute distress HEAD: Normocephalic, atraumatic EYES: PERRLA, EOM intact, no scleral icterus, no conjunctival hemorrhage, visual alvarado and acuity wnl NOSE: No tenderness, discharge, sinus tenderness MOUTH: No erythema, bleeding, exudate HEART: Regular rate and rhythm, no murmur, S1-S2 are auscultated, pulses are symmetric LUNGS: Bilateral breath sounds, No tachypnea, No retractions, No wheezing, rales, rhonchi ABDOMEN: Normal bowel sounds, no tenderness, no rebound, no guarding, no masses, no CVA tenderness MUSCULOSKELETAL: Normal joint range of motion, no redness, no swelling, no tenderness NEUROLOGIC: GCS 15, Alert and Oriented x3, Cranial nerves intact, normal sensation, normal strength, normal gait, no cerebellar deficit PSYCHIATRIC: No homicidal or suicidal ideation, no anxiety, no depression, no hallucinations SKIN: Skin is warm and dry, no wounds, no rashes ED Course Vital Signs 10/11/18 10/11/18 10/11/18 01:46 01:48 02:00 Temperature 98.3 F Pulse Rate 84 Respiratory 20 Rate Blood Pressure 141/99 120/89 Blood Pressure 141/99 [Left] O2 Sat by Pulse 96 97 97 Oximetry ED Medical Decision Making - Medical Decision Making Patient comfortable. Recommend discontinuing the medication and follow up with provider to discuss other options. Plan discharge with outpatient follow up. Return if any worsening. Critical care attestation.: If time is entered above; I have spent that time in minutes in the direct care of this critically ill patient, excluding procedure time. ED Disposition Clinical Impression: Medication reaction Qualifiers: Encounter type: initial encounter Qualified Code(s): T50.905A - Adverse effect of unspecified drugs, medicaments and biological substances, initial encounter Disposition: DC-01 TO HOME OR SELFCARE Is pt being admited?: No Condition: Stable Instructions: Allergies (ED) Referrals: [facility] [Outside] - 2-3 Days Time of Disposition: 02:45
[2018-10-11 02:49] VITALS: BP 120/89
== END 2018-10-11 03:25 | disposition home or self-care (01) ==
LOC: ED 01:38
DX: T43.695A Adverse effect of other psychostimulants, initial encounter (principal); M16.0 Bilateral primary osteoarthritis of hip; J45.909 Unspecified asthma, uncomplicated; F17.200 Nicotine dependence, unspecified, uncomplicated; F12.10 Cannabis abuse, uncomplicated; Y92.89 Other specified places as the place of occurrence of the external cause
CPT/HCPCS: 99282

== ENCOUNTER 2019-04-26 15:23 | Emergency (ER) | payer MEDICAID ==
--- NOTE | 2019-04-26 16:00 | Emergency Department Report ---
ED Psych HPI - General Chief Complaint: Psych Stated Complaint: PSYCH EVAL Time Seen by Provider: 04/26/19 15:53 Source: EMS Mode of arrival: Ambulatory - History of Present Illness Initial Comments: Patient is 53 years old male with history of schizophrenia. Patient brought to the emergency room by police department for evaluation of paranoid and delusion. Patient mother called police because of patient acting abnormal. Mother is not at bedside. Patient stated that he is seeing a and hearing man coming to his mother house and raping her. Patient denies any suicidal or homicidal ideation. Patient is very agitated and having pressured speech when he talks. MD Complaint: altered mental status Associated Psychiatric Symptoms: racing thoughts, delusions History of same: Yes - Related Data Home Medications Medication Instructions Recorded Confirmed Last Taken haloperidoL [Haldol] 1 mg PO QHS 01/05/16 04/26/19 2 Days Ago ~04/24/19 Gabapentin 1 tab PO DAILY 03/07/17 04/26/19 2 Days Ago ~04/24/19 Hydroxyzine HCl [hydrOXYzine] 50 mg PO TID 03/07/17 04/26/19 2 Days Ago ~04/24/19 [place] Carbonate 600 mg PO BID 03/07/17 04/26/19 2 Days Ago ~04/24/19 Sertraline [Zoloft] 50 mg PO QDAY 03/07/17 04/26/19 2 Days Ago ~04/24/19 traZODone [Desyrel] 200 mg PO QHS 03/07/17 04/26/19 2 Days Ago ~04/24/19 Allergies Allergy/AdvReac Type Severity Reaction Status Date / Time codeine Allergy Itching Verified 04/26/18 08:06 ED Review of Systems ROS: Stated complaint: PSYCH EVAL Other details as noted in HPI Comment: All other systems reviewed and negative Constitutional: denies: chills, fever Respiratory: denies: cough, shortness of breath, SOB with exertion, SOB at rest, wheezing Cardiovascular: denies: chest pain, palpitations Gastrointestinal: denies: abdominal pain Neurological: denies: headache, weakness Psychiatric: anxiety, auditory hallucinations, visual hallucinations. denies: depression, homicidal thoughts, suicidal thoughts ED Past Medical Hx - Past Medical History Previous Medical History?: Yes Hx Hypertension: No Hx Congestive Heart Failure: No Hx Diabetes: No Hx GERD: Yes Hx Liver Disease: No Hx Arthritis: Yes (bilateral hips) Hx Seizures: No Hx Psychiatric Treatment: No Hx Asthma: Yes Hx COPD: No Hx HIV: No - Surgical History Past Surgical History?: Yes Additional Surgical History: ankle, hip replacement - Social History Smoking Status: Current Every Day Smoker - Medications Home Medications: Home Medications Medication Instructions Recorded Confirmed Last Taken Type haloperidoL [Haldol] 1 mg PO QHS 01/05/16 04/26/19 2 Days Ago History ~04/24/19 Gabapentin 1 tab PO DAILY 03/07/17 04/26/19 2 Days Ago History ~04/24/19 Hydroxyzine HCl [hydrOXYzine] 50 mg PO TID 03/07/17 04/26/19 2 Days Ago History ~04/24/19 [place] Carbonate 600 mg PO BID 03/07/17 04/26/19 2 Days Ago History ~04/24/19 Sertraline [Zoloft] 50 mg PO QDAY 03/07/17 04/26/19 2 Days Ago History ~04/24/19 traZODone [Desyrel] 200 mg PO QHS 03/07/17 04/26/19 2 Days Ago History ~04/24/19 ED Physical Exam - General Limitations: No Limitations, Altered Mental Status General appearance: alert, in no apparent distress - Head Head exam: Present: atraumatic, normocephalic, normal inspection - Eye Eye exam: Present: normal appearance - ENT ENT exam: Present: normal exam, normal orophraynx, mucous membranes moist - Neck Neck exam: Present: normal inspection, full ROM. Absent: tenderness, meningismus, lymphadenopathy, thyromegaly - Respiratory Respiratory exam: Present: normal lung sounds bilaterally - Cardiovascular Cardiovascular Exam: Present: regular rate, normal rhythm, normal heart sounds - GI/Abdominal GI/Abdominal exam: Present: soft, normal bowel sounds. Absent: distended, tenderness, guarding, rebound, rigid, organomegaly, mass, bruit, pulsatile mass, hernia - Extremities Exam Extremities exam: Present: normal inspection, full ROM, normal capillary refill. Absent: pedal edema, calf tenderness - Back Exam Back exam: Absent: CVA tenderness (R), CVA tenderness (L) - Neurological Exam Neurological exam: Present: alert, oriented X3, CN II-XII intact, normal gait, reflexes normal. Absent: motor sensory deficit - Psychiatric Psychiatric exam: Present: agitated, anxious, manic. Absent: homicidal ideation, suicidal ideation - Skin Skin exam: Present: warm, intact, normal color ED Course Vital Signs 04/26/19 04/26/19 04/27/19 15:38 20:00 01:20 Temperature 97.4 F L 98.2 F 97.7 F Pulse Rate 86 100 H 70 Respiratory 16 16 18 Rate Blood Pressure 149/98 Blood Pressure 149/98 101/58 117/84 [Right] O2 Sat by Pulse 96 96 99 Oximetry 04/27/19 04/27/19 08:21 09:25 Temperature 97.8 F 97.8 F Pulse Rate 96 H 96 H Respiratory 18 18 Rate Blood Pressure 109/79 Blood Pressure 109/79 [Right] O2 Sat by Pulse 97 97 Oximetry ED Medical Decision Making - Lab Data Result diagrams: 04/26/19 16:10 04/26/19 16:10 Critical care attestation.: If time is entered above; I have spent that time in minutes in the direct care of this critically ill patient, excluding procedure time. ED Disposition Clinical Impression: Acute psychosis Disposition: DC/TX-65 PSY HOSP/PSY UNIT Is pt being admited?: No Condition: Stable Referrals: PRIMARY CARE, [Primary Care Provider] - 3-5 Days
[2019-04-26 16:25] LABS: Basophils % (Auto) 0.7 % (0.0-1.8); Eosinophils # (Auto) 0.1 K/mm3 (0.0-0.4); Hematocrit 41.8 % (35.5-45.6); Hemoglobin 14.2 gm/dl (11.8-15.2); Lymphocytes # (Auto) 1.7 K/mm3 (1.2-5.4); Lymphocytes % (Auto) 29.4 % (13.4-35.0); Mean Corpuscular HGB Conc 34 % (32-34); Mean Corpuscular Volume 89 fl (84-94); Monocytes # (Auto) 0.5 K/mm3 (0.0-0.8); Monocytes % (Auto) 9.1 % (0.0-7.3); Platelet Count 255 K/mm3 (140-440); Red Cell Distribution Width 14.7 % (13.2-15.2)
[2019-04-26 16:46] LABS: BUN/Creatinine Ratio 19; Blood Urea Nitrogen 17 mg/dL (9-20); Calcium 9.8 mg/dL (8.4-10.2); Hemolysis Index 6
[2019-04-26 18:35] LABS: Bilirubin,Urine NEG (Negative); Blood,Urine SM (Negative); Color,Urine Yellow (Yellow); Mucus,Urine FEW /HPF; Protein,Urine <15 mg/dL mg/dL (Negative)
[2019-04-26 18:42] LABS: Cannabinoid Screen,Urine PRESUMPTIVE NEGATIVE; Cocaine Screen,Urine PRESUMPTIVE NEGATIVE; Methadone Screen,Urine PRESUMPTIVE NEGATIVE; Opiate Screen,Urine PRESUMPTIVE NEGATIVE
[2019-04-26 18:55] LABS: Amphetamine Screen,Urine PRESUMPTIVE POSITIVE; Benzodiazepines Screen,Urine PRESUMPTIVE POSITIVE
[2019-04-26] MEDS ORDERED: ZIPRASIDONE MESYLATE 20 MG VIAL IM ONE (19:52)
[2019-04-26] MEDS ORDERED: HALOPERIDOL LACTATE 5 MG/1 ML INJ ONE (19:58)
[2019-04-26] MEDS ORDERED: LORazepam 2 MG/ML VIAL ONE (19:58)
[2019-04-26] MEDS ORDERED: LORazepam 2 MG/ML VIAL IM ONE (20:59)
[2019-04-26] MEDS ORDERED: HALOPERIDOL LACTATE 5 MG/1 ML INJ IM ONE (20:59)
[2019-04-26] MEDS ORDERED: AMMONIA INHALANT IH ONE (21:19)
[2019-04-27 09:18] VITALS: BP 109/79
== END 2019-04-27 09:24 ==
LOC: ED 15:23
DX: F23 Brief psychotic disorder (principal); K21.9 Gastro-esophageal reflux disease without esophagitis; M19.90 Unspecified osteoarthritis, unspecified site; J45.909 Unspecified asthma, uncomplicated; F17.200 Nicotine dependence, unspecified, uncomplicated; Z98.890 Other specified postprocedural states; Z79.899 Other long term (current) drug therapy; Z88.5 Allergy status to narcotic agent
CPT/HCPCS: 36415; 80048; 80307; 81001; 85025; 96372; 99285; J1630; J2060; 80320; G0480; J3486

== ENCOUNTER 2019-09-18 10:17 | Emergency (ER) | payer MEDICAID ==
--- NOTE | 2019-09-18 12:09 | XRay Report ---
CHEST 2 VIEWS INDICATION / CLINICAL INFORMATION: Chest. COMPARISON: 01/22/17 FINDINGS: SUPPORT DEVICES: None. HEART / MEDIASTINUM: No significant abnormality. LUNGS / PLEURA: No significant pulmonary or pleural abnormality. Right upper lobe scarring is stable. No pneumothorax. ADDITIONAL FINDINGS: No significant additional findings. IMPRESSION: 1. No acute findings. No change. Signer Name: Daily Hernandez MD Signed: 09/18/2019 12:05 PM Workstation Name: [id number]
[2019-09-18 14:43] LABS: Basophils % (Auto) 0.7 % (0.0-1.8); Eosinophils % (Auto) 0.2 % (0.0-4.3); Hematocrit 43.5 % (35.5-45.6); Hemoglobin 14.4 gm/dl (11.8-15.2); Lymphocytes # (Auto) 1.3 K/mm3 (1.2-5.4); Mean Corpuscular HGB Conc 33 % (32-34); Mean Corpuscular Volume 91 fl (84-94); Monocytes # (Auto) 0.4 K/mm3 (0.0-0.8); Monocytes % (Auto) 8.4 % (0.0-7.3); Platelet Count 262 K/mm3 (140-440); Red Cell Distribution Width 17.2 % (13.2-15.2)
[2019-09-18 15:07] LABS: Alanine Aminotransferase 26 units/L (7-56); Albumin 4.7 g/dL (3.9-5); BUN/Creatinine Ratio 9; Blood Urea Nitrogen 7 mg/dL (9-20); Calcium 9.4 mg/dL (8.4-10.2); Hemolysis Index 9
[2019-09-18] MEDS ORDERED: SODIUM CHLORIDE 0.9% 1000 ML 1,000 ML IV ONE (15:45)
[2019-09-18] MEDS ORDERED: FAMOTIDINE 20 MG/2 ML INJ IV ONE (15:46)
[2019-09-18] MEDS ORDERED: ALUM-MAG HYDROXIDE-SIMETHICONE 200-200-20MG/5ML ORAL LIQD 30 ML PO ONE (15:47)
[2019-09-18] MEDS ORDERED: LIDOCAINE VISCOUS 2% 15 ML ORAL LIQD PO ONE (15:51)
[2019-09-18] MEDS ORDERED: IPRATROPIUM 0.02% NEBU 2.5 ML IH ONE (16:28)
[2019-09-18] MEDS ORDERED: ALBUTEROL 2.5 MG/3 ML NEBU IH ONE (16:28)
[2019-09-18] MEDS ORDERED: methylPREDNISolone Sod Succinate 125 MG/2 ML INJ IV ONE (16:30)
--- NOTE | 2019-09-18 16:59 | Emergency Department Report ---
<MARIBEL FELICIANO - Last Filed: 09/18/19 19:06> ED General Adult HPI - General Chief complaint: Chest Pain Stated complaint: CHEST PAIN Time Seen by Provider: 09/18/19 11:26 Source: patient Mode of arrival: Ambulatory Limitations: No Limitations - History of Present Illness Initial comments: 53-year-old -Malag[place] male patient with history of schizophrenia presents with complaints of cough and shortness of breath x2 weeks, fatigue, lose of consciousness x2 days. Patient also reports a syncopal episode after a coughing fit today. Patient states he did fall on the floor and is unsure if he hit his head. He denies any headache, vision changes, numbness/tingling/weakness in his limbs, confusion, difficulty with speech/ambulation, or memory loss. COPD noted in patient's chart as a previous diagnosis, however patient denies any previous history of COPD. Patient does admit to continued cigarette smoking. He also d enies any history of MIs/CVAs, DVT/PE, leg pain/swelling, recent long travel, hemoptysis, or history of cancer. He describes his chest pain as tightness and states it worsens with coughing. Patient also denies any known sick contacts or travel outside the country. He also states a burning sensation to his epigastric and substernal area. Radiation: non-radiation Consistency: constant - Related Data Home Medications Medication Instructions Recorded Confirmed Last Taken haloperidoL [Haldol] 1 mg PO QHS 01/05/16 04/26/19 2 Days Ago ~04/24/19 Gabapentin 1 tab PO DAILY 03/07/17 04/26/19 2 Days Ago ~04/24/19 Hydroxyzine HCl [hydrOXYzine] 50 mg PO TID 03/07/17 04/26/19 2 Days Ago ~04/24/19 [place] Carbonate 600 mg PO BID 03/07/17 04/26/19 2 Days Ago ~04/24/19 Sertraline [Zoloft] 50 mg PO QDAY 03/07/17 04/26/19 2 Days Ago ~04/24/19 traZODone [Desyrel] 200 mg PO QHS 03/07/17 04/26/19 2 Days Ago ~04/24/19 Previous Rx's Medication Instructions Recorded Last Taken Type Albuterol Mdi (or & Nicu Only) 2 puff IH Q4H PRN #8.5 gram 09/18/19 Unknown Rx [ProAir HFA Inhaler] Benzonatate 200 mg PO TID PRN #30 capsule 09/18/19 Unknown Rx Doxycycline Monohydrate 100 mg PO BID 10 Days #20 capsule 09/18/19 Unknown Rx [Doxycycline Monohydrate CAP] Prednisone [predniSONE 10 mg 10 mg PO .TAPER #1 tab.ds.pk 09/18/19 Unknown Rx (6-Day Pack, 21 Tabs)] Allergies Allergy/AdvReac Type Severity Reaction Status Date / Time codeine Allergy Itching Verified 04/26/18 08:06 ED Review of Systems Constitutional: chills, malaise. denies: diaphoresis, fever, weakness Eyes: denies: eye pain, vision change Respiratory: cough, shortness of breath, SOB with exertion, SOB at rest Cardiovascular: chest pain. denies: palpitations, edema, syncope Gastrointestinal: denies: abdominal pain, nausea, vomiting, diarrhea Genitourinary: denies: urgency, dysuria, frequency, hematuria Musculoskeletal: denies: back pain Skin: denies: rash, lesions Neurological: denies: headache, weakness, numbness, paresthesias, confusion, abnormal gait Hematological/Lymphatic: denies: swollen glands ED Past Medical Hx - Past Medical History Previous Medical History?: Yes Hx Hypertension: No Hx Congestive Heart Failure: No Hx Diabetes: No Hx GERD: Yes Hx Liver Disease: No Hx Arthritis: Yes (bilateral hips) Hx Seizures: No Hx Psychiatric Treatment: No Hx Asthma: Yes Hx COPD: No Hx HIV: No - Surgical History Past Surgical History?: Yes Additional Surgical History: ankle, hip replacement - Social History Smoking Status: Current Every Day Smoker - Medications Home Medications: Home Medications Medication Instructions Recorded Confirmed Last Taken Type haloperidoL [Haldol] 1 mg PO QHS 01/05/16 04/26/19 2 Days Ago History ~04/24/19 Gabapentin 1 tab PO DAILY 03/07/17 04/26/19 2 Days Ago History ~04/24/19 Hydroxyzine HCl [hydrOXYzine] 50 mg PO TID 03/07/17 04/26/19 2 Days Ago History ~04/24/19 [place] Carbonate 600 mg PO BID 03/07/17 04/26/19 2 Days Ago History ~04/24/19 Sertraline [Zoloft] 50 mg PO QDAY 03/07/17 04/26/19 2 Days Ago History ~04/24/19 traZODone [Desyrel] 200 mg PO QHS 03/07/17 04/26/19 2 Days Ago History ~04/24/19 Albuterol Mdi (or & Nicu Only) 2 puff IH Q4H PRN #8.5 gram 09/18/19 Unknown Rx [ProAir HFA Inhaler] Benzonatate 200 mg PO TID PRN #30 capsule 09/18/19 Unknown Rx Doxycycline Monohydrate 100 mg PO BID 10 Days #20 capsule 09/18/19 Unknown Rx [Doxycycline Monohydrate CAP] Prednisone [predniSONE 10 mg 10 mg PO .TAPER #1 tab.ds.pk 09/18/19 Unknown Rx (6-Day Pack, 21 Tabs)] ED Physical Exam - General Limitations: No Limitations General appearance: alert, in no apparent distress - Head Head exam: Present: atraumatic, normocephalic - Eye Eye exam: Present: normal appearance, PERRL, EOMI. Absent: scleral icterus - ENT ENT exam: Present: mucous membranes moist - Neck Neck exam: Present: normal inspection, full ROM. Absent: tenderness - Respiratory Respiratory exam: Present: wheezes, rales, rhonchi. Absent: respiratory distress, chest wall tenderness - Cardiovascular Cardiovascular Exam: Present: regular rate, normal rhythm. Absent: systolic murmur, diastolic murmur, rubs, gallop - GI/Abdominal GI/Abdominal exam: Present: soft, normal bowel sounds. Absent: distended, tenderness, guarding, rebound, rigid - Extremities Exam Extremities exam: Present: normal inspection. Absent: calf tenderness (No swelling or tenderness noted bilaterally to lower extremity) - Back Exam Back exam: Present: normal inspection - Neurological Exam Neurological exam: Present: alert, oriented X3, CN II-XII intact, normal gait. Absent: motor sensory deficit - Expanded Neurological Exam Expanded Cerebellar function: Finger to Nose: Normal, Heel to Cherry: Normal, Romberg: Normal Sensory exam: Upper Extremity Light Touch: Normal, Lower Extremity Light Touch: Normal Motor strength exam: RUE: 5, LUE: 5, RLE: 5, LLE: 5 - Psychiatric Psychiatric exam: Present: normal affect, normal mood ED Medical Decision Making - Lab Data Result diagrams: 09/18/19 14:23 09/18/19 14:23 Lab Results 09/18/19 09/18/19 09/18/19 Range/Units 14:23 14:23 16:53 WBC 5.2 (4.5-11.0) K/mm3 RBC 4.80 (3.65-5.03) M/mm3 Hgb 14.4 (11.8-15.2) gm/dl Hct 43.5 (35.5-45.6) % MCV 91 (84-94) fl MCH 30 (28-32) pg MCHC 33 (32-34) % RDW 17.2 H (13.2-15.2) % Plt Count 262 (140-440) K/mm3 Lymph % (Auto) 25.0 (13.4-35.0) % Centre % (Auto) 8.4 H (0.0-7.3) % Eos % (Auto) 0.2 (0.0-4.3) % Baso % (Auto) 0.7 (0.0-1.8) % Lymph # 1.3 (1.2-5.4) K/mm3 Centre # 0.4 (0.0-0.8) K/mm3 Eos # 0.0 (0.0-0.4) K/mm3 Baso # 0.0 (0.0-0.1) K/mm3 Seg Neutrophils % 65.7 (40.0-70.0) % Seg Neutrophils # 3.4 (1.8-7.7) K/mm3 Sodium 131 L (137-145) mmol/L Potassium 4.5 (3.6-5.0) mmol/L Chloride 94.9 L (98-107) mmol/L Carbon Dioxide 22 (22-30) mmol/L Anion Gap 19 mmol/L BUN 7 L (9-20) mg/dL Creatinine 0.8 (0.8-1.5) mg/dL Estimated GFR > 60 ml/min BUN/Creatinine Ratio 9 % Glucose 168 H (75-100) mg/dL Calcium 9.4 (8.4-10.2) mg/dL Total Bilirubin 0.50 (0.1-1.2) mg/dL AST 27 (5-40) units/L ALT 26 (7-56) units/L Alkaline Phosphatase 119 (35-129) units/L Troponin T < 0.010 < 0.010 (0.00-0.029) ng/mL Total Protein 7.7 (6.3-8.2) g/dL Albumin 4.7 (3.9-5) g/dL Albumin/Globulin Ratio 1.6 % - Radiology Data Radiology results: report reviewed CHEST 2 VIEWS INDICATION / CLINICAL INFORMATION: Chest. COMPARISON: 01/22/17 FINDINGS: SUPPORT DEVICES: None. HEART / MEDIASTINUM: No significant abnormality. LUNGS / PLEURA: No significant pulmonary or pleural abnormality. Right upper lobe scarring is stable. No pneumothorax. ADDITIONAL FINDINGS: No significant additional findings. IMPRESSION: 1. No acute findings. No change. NONENHANCED CT SCAN OF THE HEAD: INDICATION / CLINICAL INFORMATION: 53 years Male; syncope; dizziness TECHNIQUE: Routine CT head without contrast. All CT scans at this location are performed using CT dose reduction for ALARA by means of automated exposure control. COMPARISON: CT scan of the head from 09/10/2011 FINDINGS: BRAIN / INTRACRANIAL CONTENTS: No acute hemorrhage, mass effect, midline shift, hydrocephalus, or acute, large territorial infarct. No chronic infarct or focal atrophy. Mild cor tical involution; medial temporal lobes are normal; since the last CT scan, low attenuation white matter areas in the centrum semiovale posteriorly due to chronic small vessel disease CRANIOCERVICAL JUNCTION: No significant abnormality. ORBITS: No significant abnormality of visualized orbits. SINUSES / MASTOIDS: No significant abnormality of the visualized paranasal sinuses or mastoid air cells. ADDITIONAL FINDINGS: None. IMPRESSION: No acute parenchymal lesion in the brain Signer Name: Frank Wick MD Signed: 09/18/2019 5:14 PM Workstation Name: [id number] Transcribed By: JOVAN Dictated By: Frank Thomas MD Electronically Authenticated By: Frank Thomas MD Signed Date/Time: 09/18/19 6917 - Medical Decision Making CT head is normal. No acute findings noted on initial and repeat EKGs. Initial line repeat troponins are normal. No white count noted on CBC. CMP is unremarkable. Chest x-ray is unremarkable. Patient given Decadron and is currently receiving continuous DuoNeb-patient states his symptoms are improving. Patient's vitals are normal. Patient symptoms seem to be consistent with bacterial bronchitis given his history of smoking and duration of the symptoms. Patient informed COVID-19 cannot be ruled out and to seek out testing. Also recommend follow-up with his primary care provider. Strict return precautions were discussed in great detail with patient who verbalizes understanding. I anticipate patient being discharged home after his breathing treatment. Patient handed off to colleague, HALLE Hughes- to reassess pt for d/c. ED Disposition Clinical Impression: COPD (chronic obstructive pulmonary disease), Bronchitis Disposition: DC-01 TO HOME OR SELFCARE Condition: Stable Instructions: Acute Bronchitis (ED), Chronic Obstructive Pulmonary Disease ( ED), Chronic Bronchitis (ED) Additional Instructions: Please seek COVID testing. Seek immediate emergency treatment if you experience new or worsening symptoms. Prescriptions: Benzonatate 200 mg PO TID PRN #30 capsule PRN Reason: Cough Doxycycline Monohydrate [Doxycycline Monohydrate CAP] 100 mg PO BID 10 Days #20 capsule Prednisone [predniSONE 10 mg (6-Day Pack, 21 Tabs)] 10 mg PO .TAPER #1 tab.ds.pk Albuterol Mdi (or & Nicu Only) [ProAir HFA Inhaler] 2 puff IH Q4H PRN #8.5 gram PRN Reason: Shortness Of Breath Referrals: PERNELL ASHRAF MD [Primary Care Provider] - 3-5 Days [facility] [Outside] - 3-5 Days Forms: Work/School Release Form(ED) ED Chest pain MDM - PERC Rule Heart Rate < 100: (1) Yes O2 Sat on Room Air > .94%: (0) No No Prior History pf DVT/PE: (0) No No Recent Trauma or Surgery: (0) No Hemoptysis: (0) No No Exogenous Estrogen: (0) No No Clinical Signs Suggesting DVT: (0) No Heart Score - HEART Score History: Slightly suspicious EKG: Normal Age: 45-65 Risk factors: 1-2 risk factors Troponin: < normal limit HEART Score: 2 - Critical Actions Critical Actions: 0-3 pts:0.9-1.7%risk of adverse cardiac event.Candidate for discharge <SUNSHINE BAIRD - Last Filed: 09/18/19 20:25> ED Review of Systems ROS: Stated complaint: CHEST PAIN Other details as noted in HPI ED Course Vital Signs 09/18/19 09/18/19 10:34 19:24 Temperature 98.9 F 98.9 F Pulse Rate 101 H 80 Respiratory 20 18 Rate Blood Pressure 128/93 Blood Pressure 138/81 [Left] O2 Sat by Pulse 94 100 Oximetry ED Medical Decision Making - Lab Data Result diagrams: 09/18/19 14:23 09/18/19 14:23 - Medical Decision Making After breathing treatment he received with 10 fluids. Reassessment was done. Patient was satting much better and pulse rate decreased. Patient looks better, Lungs sounded better, and reports feeling better. Critical care attestation.: If time is entered above; I have spent that time in minutes in the direct care of this critically ill patient, excluding procedure time. ED Disposition Is pt being admited?: No Does the pt Need Aspirin: No Time of Disposition: 20:25
--- NOTE | 2019-09-18 17:19 | Cat Scan Report ---
NONENHANCED CT SCAN OF THE HEAD: INDICATION / CLINICAL INFORMATION: 53 years Male; syncope; dizziness TECHNIQUE: Routine CT head without contrast. All CT scans at this location are performed using CT dos e reduction for ALARA by means of automated exposure control. COMPARISON: CT scan of the head from 09/10/2011 FINDINGS: BRAIN / INTRACRANIAL CONTENTS: No acute hemorrhage, mass effect, midline shift, hydrocephalus, or ac salvatore, large territorial infarct. No chronic infarct or focal atrophy. Mild cortical involution; medial temporal lobes are normal; since the last CT scan, low attenuation white matter areas in the centrum semiovale posteriorly due to chronic small vessel disease CRANIOCERVICAL JUNCTION: No significant abnormality. ORBITS: No significant abnormality of visualized orbits. SINUSES / MASTOIDS: No significant abnormality of the visualized paranasal sinuses or mastoid air jena ls. ADDITIONAL FINDINGS: None. IMPRESSION: No acute parenchymal lesion in the brain Signer Name: Frank Wick MD Signed: 09/18/2019 5:14 PM Workstation Name: [id number]
[2019-09-18 19:25] VITALS: BP 138/81
== END 2019-09-18 21:08 | disposition home or self-care (01) ==
LOC: ED 10:17
DX: J44.9 Chronic obstructive pulmonary disease, unspecified (principal); K21.9 Gastro-esophageal reflux disease without esophagitis; M19.90 Unspecified osteoarthritis, unspecified site; F17.200 Nicotine dependence, unspecified, uncomplicated; Z98.890 Other specified postprocedural states; Z79.899 Other long term (current) drug therapy; Z88.8 Allergy status to other drugs, medicaments and biological substances
CPT/HCPCS: 36415; 70450; 71046; 80053; 84484; 85025; 93005; 96374; 99284; J2930; J7030

== ENCOUNTER 2021-02-11 08:34 | Emergency (ER) | payer MEDICAID ==
--- NOTE | 2021-02-11 09:16 | XRay Report ---
CHEST 2 VIEWS INDICATION / CLINICAL INFORMATION: chest pain. COMPARISON: Chest x-ray on 09/17/2020 FINDINGS: SUPPORT DEVICES: None. HEART / MEDIASTINUM: No significant abnormality. LUNGS / PLEURA: No acute findings. Stable right upper lobe scarring. ADDITIONAL FINDINGS: No significant additional findings. IMPRESSION: 1. No acute findings. Signer Name: Kelechi Contreras MD Signed: 02/11/2021 9:11 AM Workstation Name: [id number]
[2021-02-11] MEDS ORDERED: SODIUM CHLORIDE 0.9% 1000 ML 1,000 ML IV ONE ×3 (09:32→13:39)
--- NOTE | 2021-02-11 09:37 | Emergency Department Report ---
HPI - HPI HPI: Room 22 The patient 55-year-old male present with a chief complaint of "not feeling good." The patient states for the past 5 days he has had body aches discharge to nausea vomiting and diarrhea. Patient admits to an occasional cough productive of clear sputum and shortness of breath. Patient admits to rhinorrhea. The patient states he did receive a Covid vaccine 2 to 3 months ago but cannot recall which brand. Patient states he only received 1 shot. <KRISTINE LAURA - Last Filed: 02/11/21 14:54> <PEDRO SALEH - Last Filed: 02/11/21 16:00> - General Chief Complaint: Chest Pain Time Seen by Provider: 02/11/21 09:05 ED Past Medical Hx - Past Medical History Hx GERD: Yes Hx Arthritis: Yes (bilateral hips) Hx Asthma: Yes - Surgical History Additional Surgical History: Right ankle, right hip replacement, right knee - Family History Family history: no significant - Social History Smoking Status: Current Every Day Smoker (1 pack/day) Substance Use Type: None (Denies illicit drug use), Alcohol (Occasional) <KRISTINE LAURA - Last Filed: 02/11/21 14:54> <PEDRO SALEH - Last Filed: 02/11/21 16:00> - Medications Home Medications: Home Medications Medication Instructions Recorded Confirmed Last Taken Type haloperidoL [Haldol] 1 mg PO QHS 01/05/16 04/26/19 2 Days Ago History ~04/24/19 Gabapentin 1 tab PO DAILY 03/07/17 04/26/19 2 Days Ago History ~04/24/19 Hydroxyzine HCl [hydrOXYzine] 50 mg PO TID 03/07/17 04/26/19 2 Days Ago History ~04/24/19 [place] Carbonate 600 mg PO BID 03/07/17 04/26/19 2 Days Ago History ~04/24/19 Sertraline [Zoloft] 50 mg PO QDAY 03/07/17 04/26/19 2 Days Ago History ~04/24/19 traZODone [Desyrel] 200 mg PO QHS 03/07/17 04/26/19 2 Days Ago History ~04/24/19 Albuterol Mdi (or & Nicu Only) 2 puff IH Q4H PRN #8.5 gram 09/18/19 Unknown Rx [ProAir HFA Inhaler] Benzonatate 200 mg PO TID PRN #30 capsule 09/18/19 Unknown Rx Doxycycline Monohydrate 100 mg PO BID 10 Days #20 capsule 09/18/19 Unknown Rx [Doxycycline Monohydrate CAP] Prednisone [predniSONE 10 mg 10 mg PO .TAPER #1 tab.ds.pk 09/18/19 Unknown Rx (6-Day Pack, 21 Tabs)] Azithromycin [Zithromax Z-FRANK] 0 mg PO DAILY #6 tab 02/11/21 Unknown Rx Cyclobenzaprine [Flexeril] 10 mg PO TID PRN #14 tablet 02/11/21 Unknown Rx Promethazine [Phenergan] 25 mg PO Q6HR PRN #20 tab 02/11/21 Unknown Rx Promethazine [Phenergan] 25 mg OK Q6HR PRN #5 supp.rect 02/11/21 Unknown Rx ED Review of Systems ROS: Stated complaint: CHEST PAIN Other details as noted in HPI Constitutional: no symptoms reported Eyes: denies: eye pain ENT: congestion Respiratory: cough, shortness of breath Endocrine: no symptoms reported Gastrointestinal: nausea, vomiting, diarrhea Genitourinary: denies: dysuria Musculoskeletal: myalgia Neurological: denies: headache <KRISTINE LAURA - Last Filed: 02/11/21 14:54> ROS: Stated complaint: CHEST PAIN Other details as noted in HPI <PEDRO SALEH - Last Filed: 02/11/21 16:00> Physical Exam - Physical Exam Physical Exam: GENERAL: The patient is well-developed well-nourished male lying on stretcher not appearing to be in acute distress. [] HEENT: Normocephalic. Atraumatic. Extraocular motions are intact. Patient has moist mucous membranes. NECK: Supple. Trachea midline CHEST/LUNGS: Clear to auscultation. There is no respiratory distress noted. HEART/CARDIOVASCULAR: Regular. There is no tachycardia. There is no gallop rub or murmur. ABDOMEN: Abdomen is soft, nontender. Patient has normal bowel sounds. There is no abdominal distention. SKIN: There is no rash. There is no edema. There is no diaphoresis. NEURO: The patient is awake, alert, and oriented. The patient is cooperative. The patient has no focal neurologic deficits. The patient has normal speech. GCS 15 MUSCULOSKELETAL: There is no evidence of acute injury. <KRISTINE LAURA - Last Filed: 02/11/21 14:54> - Physical Exam Vital Signs: Vital Signs 02/11/21 02/11/21 02/11/21 09:30 09:33 09:43 Temperature 98.3 F Pulse Rate 80 Respiratory 15 18 Rate Blood Pressure 149/94 O2 Sat by Pulse 97 98 Oximetry 02/11/21 02/11/21 02/11/21 10:00 10:30 11:00 Temperature Pulse Rate 83 89 77 Respiratory 17 13 16 Rate Blood Pressure 126/83 135/88 135/88 O2 Sat by Pulse 98 96 100 Oximetry 02/11/21 02/11/21 02/11/21 11:30 12:00 12:30 Temperature Pulse Rate 71 90 67 Respiratory 16 18 16 Rate Blood Pressure 141/97 139/81 143/77 O2 Sat by Pulse 99 98 96 Oximetry 02/11/21 02/11/21 02/11/21 13:00 13:30 14:00 Temperature Pulse Rate 78 76 64 Respiratory 18 25 H 16 Rate Blood Pressure 141/79 144/81 115/62 O2 Sat by Pulse 96 98 96 Oximetry 02/11/21 02/11/21 14:30 15:00 Temperature Pulse Rate 64 77 Respiratory 16 19 Rate Blood Pressure 128/74 177/98 O2 Sat by Pulse 97 99 Oximetry <PEDRO SALEH - Last Filed: 02/11/21 16:00> ED Course - Consultations Consultation #1: 02/11/21 13:30 Poison control called 02/11/21 13:40 Case discussed with poison control-recommends checking lithium level every 2-3 hours until it is in the therapeutic range. Can continue to give IV fluids to assist with excretion <KRISTINE LAURA - Last Filed: 02/11/21 14:54> Vital Signs 02/11/21 02/11/21 02/11/21 09:30 09:33 09:43 Temperature 98.3 F Pulse Rate 80 Respiratory 15 18 Rate Blood Pressure 149/94 O2 Sat by Pulse 97 98 Oximetry 02/11/21 02/11/21 02/11/21 10:00 10:30 11:00 Temperature Pulse Rate 83 89 77 Respiratory 17 13 16 Rate Blood Pressure 126/83 135/88 135/88 O2 Sat by Pulse 98 96 100 Oximetry 02/11/21 02/11/21 02/11/21 11:30 12:00 12:30 Temperature Pulse Rate 71 90 67 Respiratory 16 18 16 Rate Blood Pressure 141/97 139/81 143/77 O2 Sat by Pulse 99 98 96 Oximetry 02/11/21 02/11/21 02/11/21 13:00 13:30 14:00 Temperature Pulse Rate 78 76 64 Respiratory 18 25 H 16 Rate Blood Pressure 141/79 144/81 115/62 O2 Sat by Pulse 96 98 96 Oximetry 02/11/21 02/11/21 14:30 15:00 Temperature Pulse Rate 64 77 Respiratory 16 19 Rate Blood Pressure 128/74 177/98 O2 Sat by Pulse 97 99 Oximetry - Reevaluation(s) Reevaluation #1: 02/11/21 15:59 Patient is repeat lithium level has normalized. Patient stable for discharge. <PEDRO SALEH - Last Filed: 02/11/21 16:00> ED Medical Decision Making - Lab Data Result diagrams: 02/11/21 09:46 02/11/21 09:46 Laboratory Tests 02/11/21 02/11/21 02/11/21 09:46 09:46 09:46 WBC 3.8 L RBC 5.42 H Hgb 16.1 H Hct 47.5 H MCV 88 MCH 30 MCHC 34 RDW 14.5 Plt Count 272 Lymph % (Auto) 41.7 H [place] % (Auto) 10.7 H Eos % (Auto) 0.8 Baso % (Auto) 0.7 Lymph # (Auto) 1.6 [place] # (Auto) 0.4 Eos # (Auto) 0.0 Baso # (Auto) 0.0 Seg Neutrophils % 46.1 Seg Neutrophils # 1.7 L Sodium 132 L Potassium 4.5 Chloride 95.2 L Carbon Dioxide 28 Anion Gap 13 BUN 14 Creatinine 0.8 Estimated GFR > 60 BUN/Creatinine Ratio 18 Glucose 103 H Lactic Acid Calcium 9.6 Total Bilirubin 0.30 AST 21 ALT 16 Alkaline Phosphatase 150 H Troponin T < 0.010 Total Protein 8.0 Albumin 4.5 Albumin/Globulin Ratio 1.3 [place] Influenza A (Rapid) Influenza B (Rapid) 02/11/21 02/11/21 02/11/21 09:46 09:46 Unknown WBC RBC Hgb Hct MCV MCH MCHC RDW Plt Count Lymph % (Auto) [place] % (Auto) Eos % (Auto) Baso % (Auto) Lymph # (Auto) [place] # (Auto) Eos # (Auto) Baso # (Auto) Seg Neutrophils % Seg Neutrophils # Sodium Potassium Chloride Carbon Dioxide Anion Gap BUN Creatinine Estimated GFR BUN/Creatinine Ratio Glucose Lactic Acid 1.20 Calcium Total Bilirubin AST ALT Alkaline Phosphatase Troponin T Total Protein Albumin Albumin/Globulin Ratio [place] 1.8 H* Influenza A (Rapid) Negative Influenza B (Rapid) Negative - EKG Data -: EKG Interpreted by Me EKG shows normal: sinus rhythm Rate: normal - EKG Data When compared to previous EKG there are: no significant change Interpretation: unchanged when compared t (09/18/2019) - Radiology Data Radiology results: report reviewed (Chest x-ray), image reviewed (Chest x-ray) interpreted by me: Chest x-ray-no definite focal infiltrate, no pneumothorax [facility] [address] [place] [address] XRay Report Signed Patient: ANNABEL PALMER MR#: [id number] 0 : 1965 Acct:[id number] Age/Sex: 55 / M ADM Date: 02/11/21 Loc: ED Attending Dr: Ordering Physician: MARIBEL FELICIANO Date of Service: 02/11/21 Procedure(s): XR chest routine 2V Accession Number(s): [id number] cc: MARIBEL FELICIANO Fluoro Time In Minutes: CHEST 2 VIEWS INDICATION / CLINICAL INFORMATION: chest pain. COMPARISON: Chest x-ray on 09/17/2020 FINDINGS: SUPPORT DEVICES: None. HEART / MEDIASTINUM: No significant abnormality. LUNGS / PLEURA: No acute findings. Stable right upper lobe scarring. ADDITIONAL FINDINGS: No significant additional findings. IMPRESSION: 1. No acute findings. Signer Name: Kelechi Contreras MD Signed: 02/11/2021 9:11 AM Workstation Name: [id number] Transcribed By: ANEUDY Dictated By: Kelechi Contreras MD Electronically Authenticated By: Kelechi Contreras MD Signed Date/Time: 02/11/21910 DD/ 0 TD/TT: Print Cancel - Differential Diagnosis Influenza, COVID-19, bronchitis, pneumonia, gastroenteritis, <ALIM,KRISTINE K - Last Filed: 02/11/21 14:54> - Lab Data Result diagrams: 02/11/21 09:46 02/11/21 09:46 Lab Results 02/11/21 02/11/21 02/11/21 Range/Units 09:46 09:46 09:46 WBC 3.8 L (4.5-11.0) K/mm3 RBC 5.42 H (3.65-5.03) M/mm3 Hgb 16.1 H (11.8-15.2) gm/dl Hct 47.5 H (35.5-45.6) % MCV 88 (84-94) fl MCH 30 (28-32) pg MCHC 34 (32-34) % RDW 14.5 (13.2-15.2) % Plt Count 272 (140-440) K/mm3 Lymph % (Auto) 41.7 H (13.4-35.0) % [place] % (Auto) 10.7 H (0.0-7.3) % Eos % (Auto) 0.8 (0.0-4.3) % Baso % (Auto) 0.7 (0.0-1.8) % Lymph # (Auto) 1.6 (1.2-5.4) K/mm3 [place] # (Auto) 0.4 (0.0-0.8) K/mm3 Eos # (Auto) 0.0 (0.0-0.4) K/mm3 Baso # (Auto) 0.0 (0.0-0.1) K/mm3 Seg Neutrophils % 46.1 (40.0-70.0) % Seg Neutrophils # 1.7 L (1.8-7.7) K/mm3 Sodium 132 L (137-145) mmol/L Potassium 4.5 (3.6-5.0) mmol/L Chloride 95.2 L (98-107) mmol/L Carbon Dioxide 28 (22-30) mmol/L Anion Gap 13 mmol/L BUN 14 (9-20) mg/dL Creatinine 0.8 (0.8-1.3) mg/dL Estimated GFR > 60 ml/min BUN/Creatinine Ratio 18 % Glucose 103 H (75-100) mg/dL Lactic Acid (0.7-2.0) mmol/L Calcium 9.6 (8.4-10.2) mg/dL Total Bilirubin 0.30 (0.1-1.2) mg/dL AST 21 (5-40) units/L ALT 16 (7-56) units/L Alkaline Phosphatase 150 H (35-129) units/L Troponin T < 0.010 (0.00-0.029) ng/mL Total Protein 8.0 (6.3-8.2) g/dL Albumin 4.5 (3.9-5) g/dL Albumin/Globulin Ratio 1.3 % [place] (0.0-1.2) mmol/L Influenza A (Rapid) (Negative) Influenza B (Rapid) (Negative) 02/11/21 02/11/21 02/11/21 Range/Units 09:46 09:46 13:45 WBC (4.5-11.0) K/mm3 RBC (3.65-5.03) M/mm3 Hgb (11.8-15.2) gm/dl Hct (35.5-45.6) % MCV (84-94) fl MCH (28-32) pg MCHC (32-34) % RDW (13.2-15.2) % Plt Count (140-440) K/mm3 Lymph % (Auto) (13.4-35.0) % [place] % (Auto) (0.0-7.3) % Eos % (Auto) (0.0-4.3) % Baso % (Auto) (0.0-1.8) % Lymph # (Auto) (1.2-5.4) K/mm3 [place] # (Auto) (0.0-0.8) K/mm3 Eos # (Auto) (0.0-0.4) K/mm3 Baso # (Auto) (0.0-0.1) K/mm3 Seg Neutrophils % (40.0-70.0) % Seg Neutrophils # (1.8-7.7) K/mm3 Sodium (137-145) mmol/L Potassium (3.6-5.0) mmol/L Chloride (98-107) mmol/L Carbon Dioxide (22-30) mmol/L Anion Gap mmol/L BUN (9-20) mg/dL Creatinine (0.8-1.3) mg/dL Estimated GFR ml/min BUN/Creatinine Ratio % Glucose (75-100) mg/dL Lactic Acid 1.20 (0.7-2.0) mmol/L Calcium (8.4-10.2) mg/dL Total Bilirubin (0.1-1.2) mg/dL AST (5-40) units/L ALT (7-56) units/L Alkaline Phosphatase (35-129) units/L Troponin T (0.00-0.029) ng/mL Total Protein (6.3-8.2) g/dL Albumin (3.9-5) g/dL Albumin/Globulin Ratio % [place] 1.8 H* 0.1 (0.0-1.2) mmol/L Influenza A (Rapid) (Negative) Influenza B (Rapid) (Negative) 02/11/21 Range/Units Unknown WBC (4.5-11.0) K/mm3 RBC (3.65-5.03) M/mm3 Hgb (11.8-15.2) gm/dl Hct (35.5-45.6) % MCV (84-94) fl MCH (28-32) pg MCHC (32-34) % RDW (13.2-15.2) % Plt Count (140-440) K/mm3 Lymph % (Auto) (13.4-35.0) % [place] % (Auto) (0.0-7.3) % Eos % (Auto) (0.0-4.3) % Baso % (Auto) (0.0-1.8) % Lymph # (Auto) (1.2-5.4) K/mm3 [place] # (Auto) (0.0-0.8) K/mm3 Eos # (Auto) (0.0-0.4) K/mm3 Baso # (Auto) (0.0-0.1) K/mm3 Seg Neutrophils % (40.0-70.0) % Seg Neutrophils # (1.8-7.7) K/mm3 Sodium (137-145) mmol/L Potassium (3.6-5.0) mmol/L Chloride (98-107) mmol/L Carbon Dioxide (22-30) mmol/L Anion Gap mmol/L BUN (9-20) mg/dL Creatinine (0.8-1.3) mg/dL Estimated GFR ml/min BUN/Creatinine Ratio % Glucose (75-100) mg/dL Lactic Acid (0.7-2.0) mmol/L Calcium (8.4-10.2) mg/dL Total Bilirubin (0.1-1.2) mg/dL AST (5-40) units/L ALT (7-56) units/L Alkaline Phosphatase (35-129) units/L Troponin T (0.00-0.029) ng/mL Total Protein (6.3-8.2) g/dL Albumin (3.9-5) g/dL Albumin/Globulin Ratio % [place] (0.0-1.2) mmol/L Influenza A (Rapid) Negative (Negative) Influenza B (Rapid) Negative (Negative) <PEDRO SALEH - Last Filed: 02/11/21 16:00> Critical care attestation.: If time is entered above; I have spent that time in minutes in the direct care of this critically ill patient, excluding procedure time. <KRISTINE LAURA - Last Filed: 02/11/21 14:54> Critical care attestation.: If time is entered above; I have spent that time in minutes in the direct care of this critically ill patient, excluding procedure time. <PEDRO SALEH - Last Filed: 02/11/21 16:00> ED Disposition <KRISTINE LAURA - Last Filed: 02/11/21 14:54> Is pt being admited?: No Does the pt Need Aspirin: No Time of Disposition: 16:00 <PEDRO SALEH - Last Filed: 02/11/21 16:00> Clinical Impression: Elevated lithium level, Acute bronchitis Disposition: 01 HOME / SELF CARE / HOMELESS Condition: Stable Instructions: Cough, Adult, [id number]-Mult, [place] Toxicity, Acute Bronchitis (ED) Additional Instructions: Return to the emergency department should you develop worsening symptoms, in ability to tolerate food or liquids, high fever or any other concerns Repeat lithium levels have normalized. Prescriptions: Cyclobenzaprine [Flexeril] 10 mg PO TID PRN #14 tablet PRN Reason: Muscle Spasm Promethazine [Phenergan] 25 mg PO Q6HR PRN #20 tab PRN Reason: Nausea Promethazine [Phenergan] 25 mg OK Q6HR PRN #5 supp.rect PRN Reason: Vomiting Azithromycin [Zithromax Z-FRANK] 0 mg PO DAILY #6 tab Referrals: PRIMARY CARE, [Referring] - 3-5 Days
[2021-02-11 10:17] LABS: Basophils % (Auto) 0.7 % (0.0-1.8); Eosinophils % (Auto) 0.8 % (0.0-4.3); Hematocrit 47.5 % (35.5-45.6); Hemoglobin 16.1 gm/dl (11.8-15.2); Lymphocytes # (Auto) 1.6 K/mm3 (1.2-5.4); Lymphocytes % (Auto) 41.7 % (13.4-35.0); Mean Corpuscular HGB Conc 34 % (32-34); Mean Corpuscular Volume 88 fl (84-94); Monocytes # (Auto) 0.4 K/mm3 (0.0-0.8); Monocytes % (Auto) 10.7 % (0.0-7.3); Platelet Count 272 K/mm3 (140-440); Red Blood Count 5.42 M/mm3 (3.65-5.03); Red Cell Distribution Width 14.5 % (13.2-15.2)
[2021-02-11 10:38] LABS: Alanine Aminotransferase 16 units/L (7-56); Albumin 4.5 g/dL (3.9-5); BUN/Creatinine Ratio 18; Blood Urea Nitrogen 14 mg/dL (9-20); Calcium 9.6 mg/dL (8.4-10.2); Hemolysis Index 5
--- NOTE | 2021-02-11 12:28 | Electrocardiograph Report ---
[facility] Test Date: 2021-02-11 Test Time: 08:45:35 Pat Name: ANNABEL PALMER Department: Room: Gender: M Paid Intern: HOANG : 1965 Requested By: MARIBEL FELICIANO Order Number: [id number] Reading MD: Roger Aparicio Measurements Intervals [place] Rate: 87 P: 58 [place]: 163 QRS: 65 QRSD: 70 T: 70 QT: 357 QTc: 429 Interpretive Statements Sinus rhythm Probable left atrial enlargement nonspecific st-t No previous ECG available for comparison Electronically Signed On 02-11-2021 12:27:58 EST by Roger Aparicio
[2021-02-11 18:06] VITALS: BP 127/47
== END 2021-02-11 17:49 | disposition home or self-care (01) ==
LOC: ED 08:34
DX: J20.8 Acute bronchitis due to other specified organisms (principal); R79.0 Abnormal level of blood mineral; K21.9 Gastro-esophageal reflux disease without esophagitis; M19.90 Unspecified osteoarthritis, unspecified site; J45.909 Unspecified asthma, uncomplicated; F17.210 Nicotine dependence, cigarettes, uncomplicated; Z72.89 Other problems related to lifestyle
CPT/HCPCS: 36415; 71046; 80053; 80178; 82140; 84484; 85025; 87040; 87400; 93005; 96360; 96361; 99284; J7030; Q0162

== ENCOUNTER 2021-07-13 12:05 | Outpatient (CLI) | payer MEDICAID ==
--- NOTE | 2021-07-13 14:39 | Magnetic Resonance Report ---
MRI LEFT SHOULDER WITHOUT CONTRAST INDICATION / CLINICAL INFORMATION: M25.512 PAIN LT SHOULDER, LIMITED [id number]. TECHNIQUE: Multiplanar, multisequence MR images were obtained. No contrast used. COMPARISON: None available. FINDINGS: SUPRASPINATUS: Full-thickness, essentially complete tear of the supraspinatus tendon with retraction to the glenoid and moderate fatty atrophy. INFRASPINATUS: Tendinosis but no tear. SUBSCAPULARIS: Tendinosis but no tear. BICEPS TENDON, LONG HEAD: Intra-articular tendinosis with possible partial tear. Thickening of the te ndon in the bicipital groove. GLENOID LABRUM: Degenerative fraying of the superior labrum. ARTICULAR CARTILAGE: No significant abnormality. JOINT SPACE / CAPSULE: Small glenohumeral joint effusion. ACROMION / A.C. JOINT: Mild AC joint degenerative arthrosis. Type III acromion. Mild encroachment on the rotator cuff. SUBACROMIAL/SUBDELTOID SPACE: Small amount of fluid and synovitis. BONES: No significant bone marrow edema. No fracture. No osseous lesion. SOFT TISSUES: No significant abnormality. ADDITIONAL FINDINGS: None. IMPRESSION: 1. Full-thickness, essentially complete tear of the supraspinatus tendon. 2. Intra-articular biceps tendinosis with possible partial tear. Signer Name: Daily Hernandez MD Signed: 07/13/2021 2:27 PM Workstation Name: [id number]
== END 2021-07-13 12:06 | disposition home or self-care (01) ==
LOC: XRAY 12:05
PROVIDERS: ATTEND Orthopaedic Surgery
DX: M75.122 Complete rotator cuff tear or rupture of left shoulder, not specified as traumatic (principal); M19.012 Primary osteoarthritis, left shoulder

== ENCOUNTER 2021-11-12 10:35 | Day surgery (SDC) | payer MEDICAID ==
[2021-11-10 10:59] LABS: Hematocrit 45.4 % (35.5-45.6); Hemoglobin 15.3 gm/dl (11.8-15.2); Mean Corpuscular HGB Conc 34 % (32-34); Mean Corpuscular Volume 91 fl (84-94); Platelet Count 274 K/mm3 (140-440); Red Blood Count 4.99 M/mm3 (3.65-5.03); Red Cell Distribution Width 14.3 % (13.2-15.2)
[2021-11-10 14:11] LABS: BUN/Creatinine Ratio TNR; Blood Urea Nitrogen TNR mg/dL (9-20)
[2021-11-10 14:12] LABS: Calcium TNR mg/dL (8.4-10.2); Hemolysis Index TNR
[~2021-11-12 10:35] MED LIST changes: +ACETAMINOPHEN 325 MG TAB PO SCH; -ANCEF/STERILE WATER 2 GM/20 ML IV NR; +CELECOXIB 200 MG CAP PO NR; +GABAPENTIN 300 MG CAP PO NR; +LACTATED RINGERS 1,000 ML IV SCH; +MIDAZOLAM 2 MG/2 ML INJ IV NR; -NACL 0.9% 1000 ML 1,000 ML IV SCH; -PEPCID PO NR; -VERSED IV NR; +ceFAZolin/Water 2 GM/20 ML 2 GM/20 ML SYRINGE IV NR; +fentaNYL 100 MCG/2 ML INJ IV PRN
[2021-11-12 11:58] LABS: Blood Urea Nitrogen 10 mg/dL (9-20); Calcium 9.5 mg/dL (8.4-10.2); Hemolysis Index 6
[2021-11-12 11:59] LABS: BUN/Creatinine Ratio 14
[2021-11-12 12:02] VITALS: BP 111/78
[2021-11-12 12:37] LABS: Benzodiazepines Screen,Urine Negative; Cannabinoid Screen,Urine Negative; Cocaine Screen,Urine Negative; Methadone Screen,Urine Negative; Opiate Screen,Urine Negative
[2021-11-12 13:01] LABS: Amphetamine Screen,Urine Positive
--- NOTE | 2021-11-12 14:02 | Anesthesia Consultation ---
Anesthesia Consult and Med Hx Date of service: 11/12/21 - Airway Anesthetic Teeth Evaluation: Poor (denies loose teeth) ROM Head & Neck: Adequate Mental/Hyoid Distance: Adequate Mallampati Class: Class III Intubation Access Assessment: Possibly Difficult - Pre-Operative Health Status ASA Pre-Surgery Classification: ASA3 Proposed Anesthetic Plan: General Nerve Block: IS - Pulmonary Hx Smoking: Yes (1PPD X 20 YRS) Hx Asthma: Yes COPD: Yes (albuterol prn; last use 1 wk ago) - Cardiovascular System Hx Hypertension: No - Central Nervous System CVA: No Hx Psychiatric Problems: Yes (anxiety/depression/hx psychosis (per chart review)) - Endocrine Hx Renal Disease: No Hx Liver Disease: No Hx Insulin Dependent Diabetes: No Hx Non-Insulin Dependent Diabetes: No Hx Thyroid Disease: No - Other Systems Hx Substance Use: Yes (remote hx heroin abuse) - Additional Comments Anesthesia Medical History Comments: No hx anesthetic complications. Patient reports that he had gone to a constitution party 2 days ago where he smoked something he thought was marijuana but later felt "weird," restless, and unable to sleep and was concerned there was something other than marijuana consumed. UDS today is positive for amphetamines and symptoms described are consistent with methamphetamine intoxication. Patient is HD stable and does not appear to be acutely intoxicated today. I explained to the patient the risks of general anesthesia after recent use of methamphetamine and that because of this, elective surgery should be postponed at this time. Patient was encouraged to abstained from drug use at least 1 wk prior to rescheduling. Patient verbalized understanding.
== END 2021-11-12 10:36 | disposition home or self-care (01) ==
LOC: OR 10:35
PROVIDERS: ATTEND Orthopaedic Surgery
DX: S46.002A Unspecified injury of muscle(s) and tendon(s) of the rotator cuff of left shoulder, initial encounter (principal); F31.9 Bipolar disorder, unspecified; J44.9 Chronic obstructive pulmonary disease, unspecified; M19.90 Unspecified osteoarthritis, unspecified site; F41.9 Anxiety disorder, unspecified; F17.210 Nicotine dependence, cigarettes, uncomplicated; Z53.8 Procedure and treatment not carried out for other reasons; Z79.899 Other long term (current) drug therapy; Z20.822 Contact with and (suspected) exposure to COVID-19; Z72.89 Other problems related to lifestyle; Z98.890 Other specified postprocedural states; X58.XXXA Exposure to other specified factors, initial encounter; Y93.89 Activity, other specified; Y92.89 Other specified places as the place of occurrence of the external cause; Y99.8 Other external cause status
CPT/HCPCS: 36415; 80048; 80307; 85027; J7120; U0003; 80320; G0480; J0690; J2250; J3010